=== PATIENT | male | born 1975 | race Hispanic/Latino ===

== ENCOUNTER 2018-04-08 02:30 | Inpatient (IN) | payer SELFPAY ==
[2018-04-08] VITALS (7 sets, daily range): BP systolic 132–177; BP diastolic 80–106
[~2018-04-08] VITALS: Ht 175.3 cm; Wt 86.2 kg
[2018-04-08] MEDS ORDERED: HYDROCODONE/APAP 10MG-325MG TAB ONE (02:58)
[2018-04-08] MEDS ORDERED: HYDROCODONE/APAP 10MG-325MG TAB PO ONE (03:00)
[2018-04-08] MEDS ORDERED: SODIUM CHLORIDE 0.9% 1000ML 1,000 ML IV STA ×2 (03:45→05:24)
[2018-04-08] MEDS ORDERED: ONDANSETRON HCL INJ 2 MG/ML VIAL IV STA (04:01)
[2018-04-08] MEDS ORDERED: HYDROMORPHONE 1MG/1ML INJ IV STA (04:01)
--- NOTE | 2018-04-08 04:25 | Diagnostic Imaging Report ---
FEMUR TWO VIEW MINIMUM RIGHT, HIP RIGHT 2-3 VW (+/- PELVIS), KNEE RIGHT 1-2 VIEWS Comparison: None Clinical history: Fall, leg pain Findings: Right femoral diaphysis spiral type fracture with3/4 shaft thickness anterior and medial displacement. Additional nondisplaced fracture line is seen within the distal femur fragment. Completely shattered comminuted patellar fracture. Several radiopaque bodies are seen in the region of the patella. Probable joint effusion though poorly assessed on provided views. Impression: 1. Displaced right femoral diaphyseal fracture. 2. Comminuted/scattered right patellar fracture. Signed by: Dr Patrica Salazar MD on 04/08/2018 4:22 AM
--- NOTE | 2018-04-08 04:28 | Diagnostic Imaging Report ---
CHEST SINGLE (PORTABLE), 04/08/2018 2:54 AM Technique: CHEST SINGLE (PORTABLE) Comparison: None available. Clinical history: Fall, fractures Findings: Unremarkable portable appearance of the heart, mediastinum, lungs and pleural spaces. Impression: 1. Lines/Tubes: None 2. No acute abnormality. Signed by: Dr Patrica Salazar MD on 04/08/2018 4:25 AM
[2018-04-08 04:49] LABS: BASOPHILS # (AUTO) 0.1 (0.0-0.1); BASOPHILS % 0.5 % (0.0-1.0); EOSINOPHILS # (AUTO) 0.1 (0.0-0.4); EOSINOPHILS % 0.5 % (0.0-6.0); HEMATOCRIT 38.3 % (38.2-49.6); HEMOGLOBIN 12.7 g/dL (14.0-18.0); LYMPHOCYTES # (AUTO) 1.9 (1.0-3.2); LYMPHOCYTES % 14.7 % (18.0-39.1); MEAN CORPUSCULAR HGB CONC 33.2 g/dL (31-35); MEAN CORPUSCULAR VOLUME 84.4 fL (81-99); MONOCYTES # (AUTO) 0.8 (0.2-0.8); NEUTROPHILS % 77.7 % (38.7-80.0); PLATELET COUNT 229 x10e3/uL (140-360); RED BLOOD COUNT 4.54 x10e6/uL (4.3-5.7); RED CELL DISTRIBUTION WIDTH 12.9 % (11.7-14.4)
[2018-04-08 05:03] LABS: INR 1.08; PROTHROMBIN TIME 13.2 seconds (11.9-14.5)
[2018-04-08 05:04] LABS: PARTIAL THROMBOPLASTIN TIME 25.6 seconds (23.8-35.5)
[2018-04-08 05:12] LABS: ALANINE AMINOTRANSFERASE 43 IU/L (0-55); ALBUMIN 4.4 g/dL (3.5-5.0); ALBUMIN/GLOBULIN RATIO 1.2 (0.8-2.0); ALKALINE PHOSPHATASE 114 IU/L (40-150); BLOOD UREA NITROGEN 9 mg/dL (7-26); BUN/CREATININE RATIO 10 (6-25); CALCIUM 9.5 mg/dL (8.4-10.2); CARBON DIOXIDE 17 mmol/L (22-29); CHLORIDE 98 mmol/L (98-107); CREATINE KINASE 147 IU/L (30-200); CREATININE, SERUM 0.94 mg/dL (0.72-1.25); EST GLOMERULAR FILTRATION RATE > 60 ML/MIN (60-); GLUCOSE 323 mg/dL (74-118); MAGNESIUM 2.1 MG/DL (1.3-2.1); SODIUM 134 mmol/L (136-145)
[2018-04-08] MEDS ORDERED: INSULIN REGULAR, HUMAN 100 UNIT/1 ML 3ML VIAL IV ONE (05:30)
[2018-04-08] MEDS ORDERED: TETANUS/DIPHTHERIA TOX ADULT 0.5 ML SYR IM ONE (05:30)
--- NOTE | 2018-04-08 05:52 | Diagnostic Imaging Report ---
Examination: CT head without contrast Clinical Indication: Fall; head injury. Technique: Transaxial noncontrast images from the skull base through the vertex were obtained. Sagittal and coronal reformatted images were done. Comparison: None. Findings: Scalp: No abnormalities. Bones: Intact. No fractures. No blastic or lytic lesions. Brain sulci: Appropriate for patient's age. Ventricles: Normal in size and configuration. No hydrocephalus. Extra-axial space: No abnormalities. Parenchyma: No abnormal densities. No masses, hemorrhage, or acute or chronic cortical based vascular insults. Suprasellar region: No abnormalities. Craniocervical junction: The foramen magnum is patent. No Chiari one malformation. Impression: No intracranial abnormality. Signed by: Dr. Sarah Lopez M.D. on 04/08/2018 5:49 AM
[2018-04-08] MEDS ORDERED: ONDANSETRON HCL INJ 2 MG/ML VIAL IV PRN (06:00)
[2018-04-08] MEDS ORDERED: DEXTROSE 50% SYRINGE 50 ML IV PRN (06:00)
--- NOTE | 2018-04-08 06:04 | Diagnostic Imaging Report ---
Examination: CT CERVICAL SPINE WITHOUT CONTRAST HISTORY:Neck pain. Fall. COMPARISON:None. TECHNIQUE: Multidetector helical axial images were obtained without contrast from the foramen magnum to T1. Coronal and sagittal reformatted images were done. Bone and soft tissue windows were evaluated. FINDINGS: Alignment:Normal alignment and lordosis. Vertebrae: Normal height and density. No acute fracture, infection or neoplasm. Disc space heights: Normal height. Caliber of spinal canal: Developmentally normal. Posterior fossa and craniocervical junction: Foramen magnum patent. No Chiari 1 malformation. Soft tissues: No abnormality. Degenerative changes: No disc bulge/ herniation or foraminal or canal stenosis. Additional findings: None. IMPRESSION: No abnormalities. Signed by: Dr. Sarah Lopez M.D. on 04/08/2018 6:00 AM
[2018-04-08] MEDS: HYDROMORPHONE 1MG/1ML INJ IV PRN ×4 (06:45→19:45)
[2018-04-08 06:50] LABS: ABG PCO2 33 mmHg (41-51); ABG PH 7.34 (7.31-7.41); ABG PO2 80 mmHg (80-105)
[2018-04-08 06:51] LABS: ABG HCO3 18 mmol/L (23-28)
[2018-04-08 06:54] LABS: AMPHETAMINES SCREEN,URINE NEGATIVE (NEGATIVE); BENZODIAZEPINES SCREEN,URINE NEGATIVE (NEGATIVE); BILIRUBIN,URINE NEGATIVE (NEGATIVE); CLARITY,URINE CLEAR (CLEAR); COLOR,URINE STRAW (YELLOW); KETONES,URINE 1+ (NEGATIVE); LEUKOCYTE ESTERASE ,URINE NEGATIVE (NEGATIVE); NITRITE,URINE NEGATIVE (NEGATIVE); PHENCYCLIDINE SCREEN,URINE NEGATIVE (NEGATIVE); PROTEIN,URINE DIPSTICK 1+ (NEGATIVE); URINE UROBILINOGEN 0.2 mg/dL (0.2 - 1)
[2018-04-08 06:55] LABS: BACTERIA,URINE RARE /HPF; WBC,URINE (MAN) 0-5 /HPF (0-5)
[2018-04-08] MEDS: INSULIN REGULAR, HUMAN 100 UNIT/1 ML 3ML VIAL SQ SCH ×4 (07:30→21:00)
[2018-04-08] MEDS: SODIUM CHLORIDE 0.9% 1000ML 1,000 ML IV SCH ×2 (07:50→12:40)
[2018-04-08 12:40] LABS: CREATINE KINASE 259 IU/L (30-200)
[2018-04-08] MEDS ORDERED: LISINOPRIL10 MG PO (14:32)
[2018-04-08] MEDS ORDERED: ATORVASTATIN CA10 MG PO (14:32)
[2018-04-08] MEDS ORDERED: LIDOCAINE HCL 2% LOCAL INJ 5 ML SDV VIAL INJ ONE (15:10)
[2018-04-08] MEDS ORDERED: SEVOFLURANE INHAL SOLN 250 ML PEN BTL ONE (15:10)
[2018-04-08] MEDS ORDERED: EPHEDRINE SULFATE INJ 50 MG/10 ML SYR ONE (15:10)
[2018-04-08] MEDS ORDERED: ONDANSETRON HCL INJ 2 MG/ML VIAL ONE (15:10)
[2018-04-08] MEDS ORDERED: ACETAMINOPHEN 1000 MG/100 ML IV ONE (15:10)
[2018-04-08] MEDS ORDERED: PROPOFOL IV EMULSION 10 MG/ML 20 ML VIAL ONE (15:10)
[2018-04-08] MEDS ORDERED: DEXAMETHASONE SOD PHOS INJ 4 MG/ML VIAL ONE (15:10)
[2018-04-08] MEDS: LISINOPRIL 20 MG TAB PO SCH (17:15)
[2018-04-08] MEDS ORDERED: CLONIDINE HCL 0.1 MG TAB PO PRN (17:15)
[2018-04-08] MEDS ORDERED: SODIUM CHLORIDE 0.9% 250ML 250 ML IV ONE (18:00)
[2018-04-08] MEDS ORDERED: SODIUM CHLORIDE 0.9% 1000ML 1,000 ML IV SCH (18:00)
[2018-04-08] MEDS ORDERED: CEFAZOLIN SOD 1 GM/NS 50ML 100 ML IV ONE (18:00)
[2018-04-08] MEDS: DIPHENHYDRAMINE HCL INJ 50 MG/ML VIAL IV PRN (20:45)
[2018-04-08 21:25] LABS: CREATINE KINASE 281 IU/L (30-200)
[2018-04-09] MEDS: SODIUM CHLORIDE 0.9% 1000ML 1,000 ML IV SCH ×4 (00:15→22:08)
[2018-04-09 00:34] VITALS: BP 125/82
[2018-04-09] MEDS: HYDROMORPHONE 1MG/1ML INJ IV PRN ×2 (00:59→03:53)
[2018-04-09] MEDS ORDERED: CEFAZOLIN SOD 1 GM VIAL IV NR (05:00)
[2018-04-09 05:33] VITALS: BP 127/83
[2018-04-09 06:25] LABS: BASOPHILS % 0.5 % (0.0-1.0); EOSINOPHILS # (AUTO) 0.1 (0.0-0.4); EOSINOPHILS % 1.1 % (0.0-6.0); HEMATOCRIT 36.6 % (38.2-49.6); HEMOGLOBIN 12.1 g/dL (14.0-18.0); LYMPHOCYTES # (AUTO) 1.8 (1.0-3.2); LYMPHOCYTES % 21.3 % (18.0-39.1); MEAN CORPUSCULAR HEMOGLOBIN 27.9 pg (28-32); MEAN CORPUSCULAR HGB CONC 33.1 g/dL (31-35); MEAN CORPUSCULAR VOLUME 84.5 fL (81-99); MONOCYTES # (AUTO) 0.8 (0.2-0.8); NEUTROPHILS # (AUTO) 5.5 (2.1-6.9); NEUTROPHILS % 66.6 % (38.7-80.0); PLATELET COUNT 206 x10e3/uL (140-360); RED BLOOD COUNT 4.33 x10e6/uL (4.3-5.7); RED CELL DISTRIBUTION WIDTH 12.8 % (11.7-14.4)
[2018-04-09 06:53] LABS: ALANINE AMINOTRANSFERASE 32 IU/L (0-55); ALBUMIN 3.6 g/dL (3.5-5.0); ALKALINE PHOSPHATASE 111 IU/L (40-150); ANION GAP 12.9 mmol/L (8-16); BLOOD UREA NITROGEN 15 mg/dL (7-26); BUN/CREATININE RATIO 18 (6-25); CARBON DIOXIDE 24 mmol/L (22-29); CHLORIDE 102 mmol/L (98-107); CHOL/HDL RATIO 6.4 (3.9-4.7); CHOLESTEROL 186 MD/DL (0-199); CREATININE, SERUM 0.83 mg/dL (0.72-1.25); EST GLOMERULAR FILTRATION RATE > 60 ML/MIN (60-); GLUCOSE 234 mg/dL (74-118); HDL CHOLESTEROL 29 MG/DL (40-60); LDL CHOLESTEROL 96 MG/DL (60-130); POTASSIUM 3.9 mmol/L (3.5-5.1); SODIUM 135 mmol/L (136-145); TRIGLYCERIDES 306 MG/DL (0-149)
[2018-04-09] MEDS ORDERED: BACITRACIN 50,000 UNIT VIAL ONE (07:12)
[2018-04-09] MEDS: INSULIN REGULAR, HUMAN 100 UNIT/1 ML 3ML VIAL SQ SCH ×4 (07:30→21:28)
[2018-04-09 07:52] LABS: PLATELET ESTIMATE ADEQUATE; PLATELET MORPHOLOGY COMMENT NORMAL; RBC MORPHOLOGY COMMENT NORMAL
[2018-04-09 07:53] LABS: ANISOCYTOSIS SLIGHT; HYPOCHROMASIA SLIGHT
--- NOTE | 2018-04-09 09:28 | Progress Note ---
DATE: April 09, 2018 Mr. Reddy is a 42-year-old man with history of diabetes and alcohol abuse. He came to the emergency room after falling. Apparently, he was drinking. He fell and had a fracture of the femur and right patella. He is going for surgery today. PHYSICAL EXAMINATION: Vitals: He has been afebrile, 97.2. Blood pressure 127/83. Heart rate 86. Respiratory rate 18. LABS: On the blood work, potassium 3.9, creatinine 0.83, glucose 234. White count 8.26, hemoglobin 12.1, hematocrit 36.6. Had a head CT that showed no acute findings. Cervical spine CT that showed no abnormality. Had a chest x-ray that showed no acute abnormalities. Femur x-ray showed displaced right femoral fracture and comminuted right patellar fracture. ASSESSMENT AND PLAN 1. Right femur and patella fracture for surgery today. 2. Uncontrolled diabetes. On ADA diet and sliding scale with insulin. 3. Continue intravenous antibiotics. 4. Uncontrolled hypertension. Doing better now. The plan is to continue ADA diet and sliding scale with insulin. Continue IV antibiotics as needed. Continue pain control and blood pressure medications. Job#: [id number]
[2018-04-09] MEDS ORDERED: NALOXONE HCL INJ 0.4 MG/ML AMP IV PRN (10:30)
[2018-04-09] MEDS ORDERED: ONDANSETRON HCL INJ 2 MG/ML VIAL IV PRN (10:30)
[2018-04-09] MEDS ORDERED: HYDROMORPHONE 0.2MG/ML-SOD CHL 30ML PCA SYRINGE IV PRN (10:30)
[2018-04-09] MEDS ORDERED: HYDROMORPHONE 1MG/1ML INJ ONE ×3 (10:43→10:54)
[2018-04-09] MEDS ORDERED: KETOROLAC TROMETHAMINE 30 MG/ML VIAL ONE (10:44)
[2018-04-09] MEDS ORDERED: HYDROMORPHONE 0.2MG/ML-SOD CHL 30ML PCA SYRINGE IV ONE (11:10)
--- NOTE | 2018-04-09 11:51 | Operative Report ---
DATE OF PROCEDURE: April 08, 2018 PREOPERATIVE DIAGNOSIS: Right femur fracture. POSTOPERATIVE DIAGNOSIS: Comminuted distal third right femur fracture. PROCEDURES PERFORMED 1. Attempted closed followed by an open reduction with intramedullary nail fixation of the right femur fracture. 2. Allograft bone grafting of the right femur fracture. RECOVERY ASSISTANT: None. ANESTHESIA: General endotracheal intubation anesthesia. IV FLUIDS: Per the anesthesia record. BLOOD LOSS: Approximately 300 mL. COMPLICATIONS: None. DESCRIPTION OF PROCEDURE: Mr. Reddy was taken to the operating room and placed in the supine position on the operating table. Following induction of general anesthesia as well as endotracheal intubation, the patient's right lower extremity was examined under anesthesia. He was found to have shortening of the right leg when compared to the left. Fluoroscopic evaluation of the right thigh found a right femur fracture. The patient's left lower extremity was placed in a well-padded lithotomy position. The right lower extremity was placed in well-padded longitudinal traction through a tibial traction pin that was sterilely placed on the patient prior to beginning the case. The patient's thigh was manipulated under anesthesia. Traction was placed across the patient's fracture site, and this resulted in near anatomic reduction of the patient's fracture site. The patient's thigh and flank were prepped and draped in standard surgical fashion. The case was begun by creating an incision over the greater trochanter. This incision was carried through skin only. Blunt dissection was used deepen this to the tip of the trochanter. An awl was used to penetrate the proximal femur at the level of the trochanter. The position of the awl was checked in the AP and lateral planes. A guide pin was then advanced within the medullary canal. As the guide pin was being passed across the patient's fracture site, the patient's fracture displaced, and there was newly noted comminution at the level of the fracture site. The fracture was manipulated by hand, and the guide pin was passed. Sequential reaming was undertaken. The fracture continued to displace during the reaming process and therefore an incision was made at the level of the fracture site. This incision was carried through skin only. Blunt dissection was used to deepen the incision to the level of the tensor fascia oscar. The tensor fascia oscar was then divided in line with the skin incision. The musculature of the lateral aspect of the femur was retracted superiorly, exposing the patient's fracture site. The fracture site was manipulated, and a reduction clamp was placed in the patient's fracture realigning the patient's fracture site in near anatomic position. The last reamer was then passed across the patient's fracture site without difficulty. A nail was then chosen and inserted within the medullary canal. It was visualized past the patient's fracture site and seated distally in the femur. The entire nail was then visualized from proximal to distal and found to be contained within the femur. There was excellent realignment at the patient's fracture site. The nail was locked proximally using the guide. Two screws were used to lock the nail distally with a free-hand technique. The fracture reduction clamp was then removed, and the fracture was again visualized through its entirety and found to be in essential anatomic realignment. The fracture site was then irrigated, and allograft bone graft was placed copiously about the comminuted segment. This area of the femur was then closed in a multilayer fashion. The remaining soft tissues were also closed in a multilayer fashion, and pascual were used to close the skin. Sterile dressings were applied. At the end of the case, the patient's tibial traction pin was removed. It was prepped sterilely and the pin was cut at the level of skin along the medial aspect of the tibia. It was then pulled through and out of the distal tibia. Both wounds were again irrigated and closed with pascual. Sterile dressings were applied. The patient was then awakened and taken to the postanesthesia care unit in stable condition. Job#: [id number]
--- NOTE | 2018-04-09 12:37 | Diagnostic Imaging Report ---
PROCEDURE:FEMUR ONE VIEW RIGHT TECHNIQUE:AP right femur totaling 2 radiographs INDICATION:Postsurgical evaluation. COMPARISON:None. FINDINGS: See conclusion. CONCLUSION: 1. Antegrade right femoral jimena with intact proximal and distal anchoring screws. Near-anatomic alignment. 2. Expected regional postsurgical changes including subcutaneous emphysema, edema, and surgical pascual. 3. No acute abnormality. Dictated by: Watson Lim M.D. on 04/09/2018 at 12:41 Electronically approved by: Watson Lim M.D. on 04/09/2018 at 12:41
[2018-04-09] MEDS: DIPHENHYDRAMINE HCL INJ 50 MG/ML VIAL IV PRN (13:00)
[2018-04-09] MEDS ORDERED: CEFAZOLIN SOD 1 GM/NS 50ML 50 ML IV SCH (14:00)
[2018-04-09 15:53] VITALS: BP 112/58
[2018-04-09] MEDS: CEFAZOLIN SOD 1 GM VIAL IV SCH (16:31)
[2018-04-09 18:12] VITALS: BP 112/58
[2018-04-09] MEDS ORDERED: FENTANYL CITRATE/PF 100MCG/2 ML INJ ONE (19:19)
[2018-04-09] MEDS ORDERED: MIDAZOLAM HCL 2 MG/2 ML VIAL ONE (19:19)
[2018-04-09 20:00] VITALS: BP 121/63
[2018-04-09] MEDS: ACETAMINOPHEN 1000 MG/100 ML IV PRN (21:29)
[2018-04-10] VITALS (7 sets, daily range): BP systolic 111–148; BP diastolic 56–82
[2018-04-10] MEDS: CEFAZOLIN SOD 1 GM VIAL IV SCH ×2 (00:50→09:03)
[2018-04-10] MEDS: ACETAMINOPHEN 1000 MG/100 ML IV PRN (03:40)
[2018-04-10] MEDS: SODIUM CHLORIDE 0.9% 1000ML 1,000 ML IV SCH ×3 (05:59→16:04)
[2018-04-10 06:28] LABS: HEMOGLOBIN 8.9 g/dL (14.0-18.0)
[2018-04-10] MEDS: RIVAROXABAN 10 MG TABLET PO SCH ×2 (06:49→16:57)
[2018-04-10] MEDS: LISINOPRIL 20 MG TAB PO SCH ×2 (09:03→09:14)
[2018-04-10] MEDS: INSULIN REGULAR, HUMAN 100 UNIT/1 ML 3ML VIAL SQ SCH ×4 (09:14→21:47)
--- NOTE | 2018-04-10 09:26 | Discharge Summary ---
Mr. Reddy is a 42-year-old man with a history of diabetes, hypertension, hyperlipidemia, alcohol abuse, who fell and broke his right leg. He underwent surgery yesterday. He is doing therapy. If he is able to walk tomorrow, he is going to be able to go home. PHYSICAL EXAMINATION GENERAL: He is awake and alert. He states his leg hurts a lot. VITALS: Temperature is 98, blood pressure 122/74. HEART: Regular rate. LUNGS: Clear to auscultation. ABDOMEN: Soft. BLOOD WORK: Potassium is 3.9, creatinine is 0.83, glucose is 234. White count 8.26, hemoglobin 8.9, hematocrit 27. DISCHARGE DIAGNOSES 1. Right leg fracture, status post surgery. 2. Diabetes. 3. Hypertension. 4. Hyperlipidemia. PLAN: Continue physical therapy today. If he is able to walk and it is okay with orthopedics, he is going to be able to go home tomorrow with Xarelto as an anticoagulant with some tramadol for pain. He needs followup with me in 1 week. He is to call me or come back to the emergency room if any recurrent problems. FREDDY WINCHESTER MD Job#: [id number] JODY
[2018-04-11] VITALS (8 sets, daily range): BP systolic 122–159; BP diastolic 63–90
[2018-04-11] MEDS: SODIUM CHLORIDE 0.9% 1000ML 1,000 ML IV SCH ×3 (01:59→20:42)
[2018-04-11 07:40] LABS: HEMOGLOBIN 7.7 g/dL (14.0-18.0)
[2018-04-11] MEDS: RIVAROXABAN 10 MG TABLET PO SCH (09:36)
[2018-04-11] MEDS: LISINOPRIL 20 MG TAB PO SCH (09:36)
[2018-04-11] MEDS: INSULIN REGULAR, HUMAN 100 UNIT/1 ML 3ML VIAL SQ SCH ×4 (09:48→20:41)
[2018-04-11] MEDS: HYDROCODONE/APAP 7.5MG-325MG 1 EA TAB PO PRN ×2 (10:58→17:00)
[2018-04-11] MEDS: ACETAMINOPHEN/CODEINE 300MG - 30MG TAB PO PRN (21:44)
[2018-04-12] VITALS: BP 123/63
[2018-04-12 04:00] VITALS: BP 136/70
[2018-04-12] MEDS: ACETAMINOPHEN/CODEINE 300MG - 30MG TAB PO PRN (06:40)
[2018-04-12 07:25] LABS: HEMATOCRIT 24.6 % (38.2-49.6); HEMOGLOBIN 8.2 g/dL (14.0-18.0)
[2018-04-12] MEDS: INSULIN REGULAR, HUMAN 100 UNIT/1 ML 3ML VIAL SQ SCH ×2 (07:30→11:30)
[2018-04-12] MEDS: SODIUM CHLORIDE 0.9% 1000ML 1,000 ML IV SCH (07:59)
[2018-04-12 08:00] VITALS: BP 140/86
[2018-04-12] MEDS: LISINOPRIL 20 MG TAB PO SCH (08:19)
[2018-04-12 08:44] VITALS: BP 140/86
[2018-04-12] MEDS: HYDROCODONE/APAP 7.5MG-325MG 1 EA TAB PO PRN (12:22)
[2018-04-12] MEDS: DIPHENHYDRAMINE HCL INJ 50 MG/ML VIAL IV PRN (12:22)
[2018-04-12] MEDS ORDERED: walker (12:56)
[2018-04-12 13:24] VITALS: BP 125/64
--- NOTE | 2018-04-13 00:20 | Discharge Summary ---
HISTORY OF PRESENT ILLNESS: This 42-year-old male, past medical history positive for diabetes. He fell at home. Apparently, he was drinking and fracture of the right leg. He underwent right femur and patella fracture repair. His hemoglobin was 7.7 yesterday, today went up to 8.2. Patient has been released by Dr. Recinos already. Patient going home with instructions to follow up with Dr. Recinos in a week. PHYSICAL EXAM VITALS: Blood pressure 140/86, temperature 97.7, heart rate 74 per minute, respiratory rate 20 per minute, oxygen saturation 98%. HEART: Shows regular rhythm. Normal S1, S2 sounds. LUNGS: Clear bilaterally. ABDOMEN: Soft. LABORATORY STUDIES: We have BMP, sodium 135, potassium 3.9, chloride 102, CO2 24, BUN 15, creatinine 0.83. On the CBC, white blood count 8.26, hemoglobin 8.2, hematocrit 24.6, platelet count 206,000. PT 13.2, PTT 25.6, INR 1.08. AST 17, ALT 32, total bilirubin 0.9, alkaline phosphatase 111. FINAL IMPRESSIONS 1. Status post right femur and patella fracture, status post surgical repair. 2. Acute anemia. 3. Hypertension. 4. Diabetes. PLAN OF TREATMENT 1. Patient will continue lisinopril 20 mg daily. 2. Xarelto 10 mg daily. 3. Diabetic diet. FOLLOWUP 1. Dr. Recinos in a week. 2. PCP in a week. YVONNE LILLY MD Job#: [id number] CQ
== END 2018-04-12 14:27 | disposition home or self-care (01) | DRG 481 ==
LOC: ER 02:30 → ERHOLD 06:39 → MED/SURG2 07:51 → MED/SURG 04-09 12:14
PROVIDERS: ADMIT Internal Medicine; ATTEND Internal Medicine
PROC: 0QS806Z Reposition Right Femoral Shaft with Intramedullary Internal Fixation Device, Open Approach (ICD-10-PCS; principal; 2018-04-08)
PROC: 0QUB0JZ Supplement Right Lower Femur with Synthetic Substitute, Open Approach (ICD-10-PCS; 2018-04-08)
DX: S72.351A Displaced comminuted fracture of shaft of right femur, initial encounter for closed fracture (principal); S82.041A Displaced comminuted fracture of right patella, initial encounter for closed fracture; F10.120 Alcohol abuse with intoxication, uncomplicated; E11.65 Type 2 diabetes mellitus with hyperglycemia; W01.0XXA Fall on same level from slipping, tripping and stumbling without subsequent striking against object, initial encounter; Y93.01 Activity, walking, marching and hiking; Y92.019 Unspecified place in single-family (private) house as the place of occurrence of the external cause; E78.5 Hyperlipidemia, unspecified; I10 Essential (primary) hypertension; F14.90 Cocaine use, unspecified, uncomplicated; D64.9 Anemia, unspecified; Z79.84 Long term (current) use of oral hypoglycemic drugs
CPT/HCPCS: 36415; 36600; 70450; 71045; 72125; 76001; 80053; 80061; 80307; 80320; 81001; 82550; 82553; 82805; 82948; 83735; 84484; 85014; 85018; 85025; 85610; 85730; 86850; 86900; 86920; 87086; 90714; 93005; 96372; 97139; 99284; C1713; C1762; J0690; J1100; J1170; J1200; J1885; J2001; J2250; J2405; J7030

== ENCOUNTER 2020-09-11 06:17 | Emergency (ER) | payer SELFPAY ==
[~2020-09-11] VITALS: Ht 175.3 cm; Wt 86.2 kg
[~2020-09-11 06:17] MED LIST: ATORVASTATIN CA10 MG PO; LISINOPRIL10 MG PO; walker
--- NOTE | 2020-09-11 06:29 | Emergency Department Note ---
History of Present Illnes History of Present Illness Chief Complaint: Abdominal Complaints History of Present Illness This is a 45 year old male that has past medical history of diabetes also a hernia that he has had for approximately 4 years. Patient states that over the last 2 days she's been having worsening hernia pain, nausea, no vomiting. Currently his pain is sharp, 10 out of 10. Patient does not have any obstructive symptoms, no vomiting, still having bowel movements last 1 yesterday, passing gas. . 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 Any updates have been documented here. Past Medical History Recent Fever: No Clinical Suspicion of Infectio: No New/Unexplained Change in Ment: No Past Medical History: Hypertension, Diabetes, Hyperlipedemia Other Medical History: HIGH CHOLESTEROL Other Surgery: RIGHT KNEE RIGHT ANKLE RIGHT TIB Other Last Tetanus: UNK Review of Systems Review of Systems Constitutional: Reports no symptoms EENTM: Reports no symptoms Cardiovascular: Reports no symptoms Respiratory: Reports no symptoms Gastrointestinal: Reports as per HPI Genitourinary: Reports no symptoms Musculoskeletal: Reports no symptoms Integumentary: Reports no symptoms Neurological: Reports no symptoms Psychological: Reports no symptoms Endocrine: Reports no symptoms Hematological/Lymphatic: Reports no symptoms Physical Exam Related Data Allergies: Coded Allergies: No Known Allergies (Unverified , 04/08/18) Triage Vital Signs Vital Signs Date Time Temp Pulse Resp B/P (MAP) Pulse Ox O2 Delivery O2 Flow Rate FiO2 09/11/20 06:20 98.4 108 23 192/109 100 Room Air Vital signs reviewed: Yes Physical Exam CONSTITUTIONAL Constitutional: Present well-developed, Present well-nourished HENT HENT: Present normocephalic, Present atraumatic, Present oropharynx clear/moist, Present nose normal HENT L/R: Present left ext ear normal, Present right ext ear normal EYES Eyes: Reports PERRL, Reports conjunctivae normal NECK Neck: Present ROM normal PULMONARY Pulmonary: Present effort normal, Present breath sounds normal CARDIOVASCULAR Cardiovascular: Present regular rhythm, Present heart sounds normal, Present capillary refill normal, Present normal rate GASTROINTESTINAL Abdominal: Present soft, Present bowel sounds normal, Present other (TTP around umbilical hernia, soft, + intestine, 2x3cm chronic ulcer with milld 2cm surrounding erythema, no fluctuance) GENITOURINARY Genitourinary: Present exam deferred SKIN Skin: Present warm, Present dry MUSCULOSKELETAL Musculoskeletal: Present ROM normal NEUROLOGICAL Neurological: Present alert, Present oriented x 3, Present no gross motor or sensory deficits PSYCHOLOGICAL Psychological: Present mood/affect normal, Present judgement normal Assessment & Plan Medical Decision Making MDM Patient's a 45-year-old male with 4 year history of an umbilical hernia no worsening pain over the last [address] yoon, we'll rule out incarceration abdominal wall cellulitis and abscess with a CT of his belly. We'll also check blood work and treat him symptomatically in the meantime. Reassessment Reassessment Patient at 1050 reassess, abdomen soft benign, no concern for peritonitis, given ulceration, we'll treat with antibiotics. Lactate likely was high secondary to hyperglycemia. Lactic acid came back normal after hydration. Your warnings given all results explained Assessment & Plan Final Impression: (1) Umbilical hernia (2) Hyperglycemia Depart Disposition: HOME, SELF-CARE Last Vital Signs Date Time Temp Pulse Resp B/P (MAP) Pulse Ox O2 Delivery O2 Flow Rate FiO2 09/11/20 06:20 98.4 108 23 192/109 100 Room Air Home Meds Active Scripts Cephalexin (CEPHALEXIN) 500 Mg Capsule, 500 MG PO TID, #30 CAP Prov:DAYRON MELGOZA MD 09/11/20 Tramadol Hcl (ULTRAM) 50 Mg Tablet, 50 MG PO Q6H PRN for severe pain, #15 TAB Prov:DAYRON MELGOZA MD 09/11/20 Reported Medications [walker] No Conflict Check 04/12/18 Atorvastatin Calcium (ATORVASTATIN CALCIUM) 10 Mg Tablet, 10 MG PO 2099, #30 TAB 04/08/18 Lisinopril (LISINOPRIL) 10 Mg Tablet, 10 MG PO DAILY, #30 TAB 04/08/18 DAYRON MELGOZA MD Sep 11, 2020 06:29
[2020-09-11] MEDS: LACTATED RINGER'S 1,000 ML INJ ONE (06:40)
[2020-09-11] MEDS: ONDANSETRON HCL INJ 2MG/ML 2ML 2 MG/ML VIAL IV STA (06:40)
[2020-09-11 06:43] LABS: BASOPHILS % 0.7 % (0.0-1.0); EOSINOPHILS # (AUTO) 0.1 (0.0-0.4); HEMATOCRIT 41.1 % (38.2-49.6); HEMOGLOBIN 13.5 g/dL (14.0-18.0); LYMPHOCYTES # (AUTO) 2.6 (1.0-3.2); LYMPHOCYTES % 42.6 % (18.0-39.1); MEAN CORPUSCULAR HGB CONC 32.8 g/dL (31-35); MEAN CORPUSCULAR VOLUME 85.3 fL (81-99); MONOCYTES # (AUTO) 0.6 (0.2-0.8); MONOCYTES % 9.1 % (4.4-11.3); NEUTROPHILS # (AUTO) 2.8 (2.1-6.9); NEUTROPHILS % 45.3 % (38.7-80.0); PLATELET COUNT 222 x10e3/uL (140-360); RED BLOOD COUNT 4.82 x10e6/uL (4.3-5.7); RED CELL DISTRIBUTION WIDTH 13.1 % (11.7-14.4)
[2020-09-11] MEDS ORDERED: ONDANSETRON HCL INJ 2MG/ML 2ML 2 MG/ML VIAL ONE (06:46)
[2020-09-11] MEDS: HYDROMORPHONE 1MG/1ML INJ IV STA (06:48)
[2020-09-11 07:01] LABS: ALANINE AMINOTRANSFERASE 29 IU/L (0-55); ALBUMIN 4.1 g/dL (3.5-5.0); ALBUMIN/GLOBULIN RATIO 1.2 (0.8-2.0); ALKALINE PHOSPHATASE 96 IU/L (40-150); ANION GAP 14.7 mmol/L (8-16); BLOOD UREA NITROGEN 19 mg/dL (7-26); BUN/CREATININE RATIO 20 (6-25); CALCIUM 8.7 mg/dL (8.4-10.2); CARBON DIOXIDE 21 mmol/L (22-29); CHLORIDE 102 mmol/L (98-107); CREATININE, SERUM 0.94 mg/dL (0.72-1.25); EST GLOMERULAR FILTRATION RATE > 60 ML/MIN (60-); GLUCOSE 259 mg/dL (74-118); LIPASE 40 U/L (8-78); POTASSIUM 3.7 mmol/L (3.5-5.1); SODIUM 134 mmol/L (136-145)
--- NOTE | 2020-09-11 07:01 | NUR ---
Report to LORI Fournier
--- OUTSIDE RECORDS SUMMARY | 2020-09-11 07:26 | XMS REPORT | Clinical Summary ---
Author Author [facility] ict Organization [facility] ict Address Unknown Phone Unavailable Care Team Providers Care Drying And Winding Supervisor Name Role Phone Kathryn Al MD PCP Tony Wesley MD PCP Allergies No Known Allergies Medications End Date Status Medication Sig Dispensed Refills Start Date Active blood glucose meter Use as 1 Kit 0 (PRECISION XTRA directed.. 6 GLUCOMETER)Indications: Uncontrolled type 2 diabetes mellitus without complication, without long-term current use of insulin Active blood glucose (PRECISION Use to test 200 Each 3 0 XTRA TEST STRIPS) test blood sugar 9 stripsIndications: three times Uncontrolled type 2 daily diabetes mellitus without complication, without long-term current use of insulin Active lancets 28 Use to test 300 Each 3 gaugeIndications: blood sugar 9 Uncontrolled type 2 three times diabetes mellitus without daily complication, without long-term current use of insulin Active blood glucose test Use to test 300 Each 6 01 stripsIndications: blood sugar 9 Inadequately controlled three times diabetes mellitus daily. Active pen needle, diabetic 31 Inject under 3 Box 3 0 gauge x 3/16" the skin 5 9 needlesIndications: times daily. Inadequately controlled diabetes mellitus Active blood glucose Use as 1 Kit 0 meterIndications: directed.. 9 Uncontrolled type 2 diabetes mellitus without complication, without long-term current use of insulin Active ketoconazole (NIZORAL) 2 Apply to 60 g 0 0 % topical affected area 0 creamIndications: Tinea 2 times corporis daily. Active metFORMIN (GLUCOPHAGE) Take 1 tablet 180 tablet 1 0 1,000 mg by mouth 2 0 tabletIndications: times daily Inadequately controlled (with meals). diabetes mellitus Additional Information Patient not taking. Reported on 04/12/2020 4:49 PM Active albuterol 90 Inhale 2 1 Inhaler 0 mcg/actuation Puffs by 0 inhalerIndications: mouth 4 times Fever, unspecified fever daily as cause, Multifocal needed for pneumonia Wheezing. Active atorvastatin (LIPITOR) 40 Take 1 tablet 90 tablet 1 mg tabletIndications: by mouth at 0 Hyperlipidemia, bedtime unspecified nightly. hyperlipidemia type Active insulin aspart U-100 Inject 15 30 mL 1 05/25 (NOVOLOG FLEXPEN U-100 Units under 0 INSULIN) 100 unit/mL (3 the skin 3 mL) penIndications: times daily. Inadequately controlled diabetes mellitus Active lisinopriL (PRINIVIL, Take 1 tablet 90 tablet 3 ZESTRIL) 20 mg by mouth 0 tabletIndications: daily. Inadequately controlled diabetes mellitus 11/22/2019 Discontinued (Alternate ther apy) clotrimazole (LOTRIMIN Apply to 28.35 g 2 AF, CLOTRIMAZOLE,) 1 % affected area 8 topical creamIndications: 2 times Tinea pedis of both feet daily. 11/22/2019 Discontinued (Reorder) insulin aspart U-100 Inject 10 5 Pen 0 07/10 (NOVOLOG FLEXPEN U-100 Units under 9 INSULIN) 100 unit/mL (3 the skin 3 mL) penIndications: times daily Inadequately controlled (before diabetes mellitus meals). 11/22/2019 Discontinued (Reorder) atorvastatin (LIPITOR) 40 Take 1 tablet 90 tablet 0 mg tabletIndications: by mouth at 9 Hyperlipidemia, bedtime unspecified nightly. hyperlipidemia type 11/22/2019 Discontinued (Reorder) lisinopril (PRINIVIL, Take 1 tablet 90 tablet 3 ZESTRIL) 20 mg by mouth 9 tabletIndications: daily. Inadequately controlled diabetes mellitus 11/22/2019 Discontinued (Reorder) insulin detemir U-100 Inject 15 3 Month 0 06/21 (LEVEMIR FLEXTOUCH U-100 Units under Supply 9 INSULN) 100 unit/mL (3 the skin mL) PenIndications: daily. Uncontrolled type 2 diabetes mellitus without complication, without long-term current use of insulin 01/26/2020 Discontinued (Reorder) insulin detemir U-100 Inject 25 27 mL 0 (LEVEMIR FLEXTOUCH U-100 Units under 0 INSULN) 100 unit/mL (3 the skin mL) PenIndications: daily for 90 Inadequately controlled days. diabetes mellitus 01/26/2020 Discontinued (Reorder) insulin aspart U-100 Inject 10 10 Pen 1 11/22 (NOVOLOG FLEXPEN U-100 Units under 0 INSULIN) 100 unit/mL (3 the skin 3 mL) penIndications: times daily. Inadequately controlled diabetes mellitus 05/25/2020 Discontinued (Reorder) atorvastatin (LIPITOR) 40 Take 1 tablet 90 tablet 0 mg tabletIndications: by mouth at 0 Hyperlipidemia, bedtime unspecified nightly. hyperlipidemia type 05/25/2020 Discontinued (Reorder) lisinopril (PRINIVIL, Take 1 tablet 90 tablet 3 ZESTRIL) 20 mg by mouth 0 tabletIndications: daily. Inadequately controlled diabetes mellitus 01/26/2020 Discontinued (Reorder) metFORMIN (GLUCOPHAGE) Take 1 tablet 180 tablet 1 0 1,000 mg by mouth 2 0 tabletIndications: times daily Inadequately controlled (with meals). diabetes mellitus 01/26/2020 tropicamide (MYDRIACYL) Instill 1 15 mL 0 0.5 % ophthalmic Drop in each 0 solutionIndications: eye once as Inadequately controlled needed for up diabetes mellitus to 1 dose (for poor retina scan image). 07/26/2020 insulin detemir U-100 Inject 45 55 mL 1 (LEVEMIR FLEXTOUCH U-100 Units under 0 INSULN) 100 unit/mL (3 the skin 2 mL) PenIndications: times daily Inadequately controlled for 90 days. diabetes mellitus 05/25/2020 Discontinued (Reorder) insulin aspart U-100 Inject 15 30 mL 1 01/25 (NOVOLOG FLEXPEN U-100 Units under 0 INSULIN) 100 unit/mL (3 the skin 3 mL) penIndications: times daily. Inadequately controlled diabetes mellitus 04/12/2020 Discontinued (Reorder) azithromycin (ZITHROMAX) Take 2 6 Each 0 0 250 mg tabletIndications: tablets by 0 Multifocal pneumonia mouth on the first day, then take one tablet every day for the next 4 days. 04/12/2020 Discontinued (Reorder) amoxicillin-clavulanate Take 1 tablet 10 tablet 0 (AUGMENTIN) 875-125 mg by mouth 2 0 per tabletIndications: times daily Multifocal pneumonia for 5 days. 04/17/2020 amoxicillin-clavulanate Take 1 tablet 10 tablet 0 (AUGMENTIN) 875-125 mg by mouth 2 0 per tabletIndications: times daily Multifocal pneumonia for 5 days. 04/17/2020 azithromycin (ZITHROMAX) Take 2 6 Each 0 0 250 mg tabletIndications: tablets by 0 Multifocal pneumonia mouth on the first day, then take one tablet every day for the next 4 days. Active Problems Problem Noted Date Chronic anemia 01/26/2020 Onychomycosis 11/22/2019 Tinea corporis 11/22/2019 Hyperlipidemia 12/07/2018 Inadequately controlled diabetes mellitus 12/07/2018 Alcohol use-quit aug 2019 12/07/2018 History of substance abuse- cocaine /MJ till 2016 Renal insufficiency 05/20/2018 Essential hypertension, benign 05/14/2016 Uncontrolled type 2 diabetes mellitus without complic ation, without 05/14/2016 long-term current use of insulin Overweight (BMI 25.0-29.9) 05/14/2016 Failure of outpatient treatment Cough Fever Resolved Problems Problem Noted Date Resolved Date Cellulitis 07/07/2019 11/22/2019 Foot swelling 12/07/2018 11/22/2019 Balanitis 05/14/2016 11/22/2019 Cellulitis of face 11/22/2019 Dental abscess 11/22/2019 Encounters Care Team Description Date Type Specialty Chloe Demarco RPH Hyperlipidemia, unspecified hyperlipidem ia type; Inadequately controlled diabetes mellitus 05/25/2020 Telephonic Clinical Pharmacy Encounter Chloe Demarco RPH Inadequately controlled diabetes mellitu s (Primary Dx); Other hyperlipidemia 04/20/2020 Telephonic Clinical Pharmacy Encounter Lit Ly MD Cough (Primary Dx); Fever, unspecified fever cause; Multifocal pneumonia 04/12/2020 Emergency Emergency Medicine Chloe Demarco RPH No Show 03/28/2020 Telephonic Clinical Pharmacy Encounter Dav Chloe Paz [facility] No Show 02/29/2020 Telephonic Clinical Pharmacy Encounter Tony Wesley MD Inadequately controlled diabetes mellitu s (Primary Dx); Hyperlipidemia, unspecified hyperlipidemia type; Chronic anemia 01/26/2020 Telephonic Family Practice Encounter Tony Wesley MD 01/26/2020 Orders Only Family Practice Ktahryn Al MD [place], [place], MD Inadequately controlled diabetes mellitu s (Primary Dx); Hyperlipidemia, unspecified hyperlipidemia type; Needs flu shot; Dietary counseling for Above / Below Normal BMI; Exercise counseling for Above Normal BMI Only!; Tinea corporis; Onychomycosis 11/22/2019 Office Visit Family Practice after 09/11/2019 Immunizations Name Administration Dates Next Due Influenza, Injectable, 11/22/2019 Quadrivalent Pneumococcal 05/24/2017 <Unspecified> Tdap (Tetanus Toxoid, 05/20/2018 (Deferred: Noe nt already had this Reduced Diphtheria Toxoid immunization - reports thi nks he got from [facility] Pertussis, Kelechi) Absorbed) Family History Medical History Relation Name Comments Diabetes Father Diabetes Mother Diabetes Paternal Grandmother Diabetes Sister Relation Name Status Comments Brother Alive Brother Alive Brother Alive Daughter Alive Daughter Alive Father Alive Maternal Grandfather Maternal Grandmother Mother Alive Paternal Grandfather Paternal Grandmother Sister Alive Social History Date Tobacco Use Types Packs/Day Years Used Former Smoker Smokeless Tobacco: Never Used Tobacco Cessation: Counseling Given: No Drinks/Week oz/Week Comments Alcohol Use 6 Cans of beer 6.0 past heavy etoh use ; curren tly 6 pk on wk ends " from depression - now able to see my daughter " Not Currently Food Insecurity Answer Date Recorded Within the past 12 months, you worried that your Never redd e 12/07/2018 food would run out before you got money to buy more. Within the past 12 months, the food you bought Never true 12/07/2018 just didn't last and you didn't have mo eric to get more. Sex Assigned at Date Recorded Not on file Industry Job Start Date Occupation Not on file Not on file Not on file Travel End Travel History Travel Start No recent travel history available. Date Recorded COVID-19 Exposure Response 09/06/2020 2:24 PM SERVICE ELECTRICIAN In the last month, have you been in contact with No / Unsure someone who was confirmed or suspected to have Coronavirus / COVID-19? Last Filed Vital Signs Reading Time Taken Comments Vital Sign 125/75 04/12/2020 8:20 PM CDT Blood Pressure 99 04/12/2020 8:20 PM CDT Pulse 38.4 C (101.2 F) 04/12/2020 8:20 PM CDT Temperature 18 04/12/2020 8:20 PM CDT Respiratory Rate 97% 04/12/2020 8:20 PM CDT Oxygen Saturation - - Inhaled Oxygen Concentration 86.4 kg (190 lb 6.4 oz) 11/22/2019 2:22 PM SERVICE ELECTRICIAN Weight 172.7 cm (5' 8") 11/22/2019 2:22 PM SERVICE ELECTRICIAN Height 28.95 11/22/2019 2:22 PM SERVICE ELECTRICIAN Body Mass Index Plan of Treatment Health Maintenance Due Date Last Done Comments DM Retinal Exam (Yearly) 03/24/2020 03/24/2019, 02/03/2019, 05/20/2018, Additional history exists DM HGBA1C (Yearly) 07/08/2020 07/08/2019, 12/07/2018, 05/20/2018, Additional history exists DM Foot Exam (Yearly) 11/22/2020 11/22/2019, 05/20/2018, 06/11/2017, Additional history exists Goals Goal Patient Associated Recent Progress Patient-Stat Aut hor Goal Type Problems ed? Reduce portion size Diet No Do ra Tim Freedman RN <enter goal here> General Yes Shirin Oneill RN Note: Pt denies having any goals at this time. Eat Healthy Lifestyle No Minerva Helms Note: Eat healthier and take medications Exercise Regularly Self No Tk Freedman RN Home Glucose Monitoring Self No juvenal Allison MD HBA1C < 8 Treatment No Tony Wesley MD Procedures Comments Procedure Name Priority Date/Time Associated Diag nosis LACTIC ACID STAT 04/12/2020 6:12 PM CDT GLUCOSE POC Routine 04/12/2020 6:03 PM CDT XRAY CHEST 2 VIEWS STAT 04/12/2020 Cough 4:30 PM CDT VBG POC Routine 04/12/2020 3:54 PM CDT LACTIC ACID STAT 04/12/2020 3:00 PM CDT CBC STAT 04/12/2020 3:00 PM CDT CBC/DIFF STAT 04/12/2020 3:00 PM CDT CREATININE POC Routine 04/12/2020 12:58 PM CDT BMP POC Routine 04/12/2020 12:58 PM CDT DIABETIC FOOT EXAM Routine 11/22/2019 Inadequatel y controlled 3:36 PM SERVICE ELECTRICIAN diabetes mellitus after 09/11/2019 Results * Lactic Acid (04/12/2020 6:12 PM CDT) Only the most recent of 2 results within the time period is included. Lactic Acid 1.4 0.5 - 2.2 mmol/L [facility] Specimen Blood Performing Organization Address [facility] [place] one Number [facility] [address] [place] [address] * POCT GLUCOSE POC docked device (04/12/2020 6:03 PM CDT) Glucose POC 214 (H) 74 - 106 mg/dL [facility] Specimen Blood Performing Organization Address [facility] [place] one Number [facility] [address] [place] [address] * XRAY CHEST 2 VIEWS (04/12/2020 4:30 PM CDT) Specimen Impressions Performed At IMPRESSION: SMS Patchy airspace opacities in the right midlung, right lower lobe and left lower lobe are concerning for mult ifocal pneumonia. Signed By: Shannan Gonzales MD, 0 4:35 PM Narrative Performed At EXAM: XRAY CHEST 2 VIEWS SMS INDICATION: cough COMPARISON: None FINDINGS: Portable technique limits velma luation. TUBES and LINES: None. LUNGS: Patchy airspace opacities in the right midlung, right lower lobe and left lower lobe are concerning for pneumonia. Peribronchial cuffing suggests endobronchial spread of diseas e or reactive airway disease. PLEURA: No pneumothorax. No pleural eff usion. HEART AND MEDIASTINUM: Cardiomediastina l silhouette is unremarkable. Unremarkable visualized aorta. BONES AND SOFT TISSUES: No acute osseou s lesion. Soft tissues are unremarkable. Procedure Note Interface, Rad/Mammog In - 04/12/2020 4:47 PM CDT EXAM: XRAY CHEST 2 VIEWS INDICATION: cough COMPARISON: None FINDINGS: Portable technique limits evaluation. TUBES and LINES: None. LUNGS: Patchy airspace opacities in the right midlung, right lower lobe and left lower lobe are concerning for pneumonia. Peribronchial cuffing suggests endobronchial spread of disease or reactive airway disease. PLEURA: No pneumothorax. No pleural effusion. HEART AND MEDIASTINUM: Cardiomediastinal silhouette is unremarkable. Unremarkable visualized aorta. BONES AND SOFT TISSUES: No acute osseous lesion. Soft tissues are unremarkable. IMPRESSION IMPRESSION: Patchy airspace opacities in the right midlung, right lower lobe and left lower lobe are concerning for multifocal pneumonia. Signed By: Shannan Gonzales MD, 04/12/2020 4:35 PM Performing Organization Address [facility] [place] [place] Ph one Number SMS * POCT VBG POC docked device (04/12/2020 3:54 PM CDT) pH, Faraz POC 7.38 7.33 - 7.43 [facility] pCO2,Faraz POC 43.4 38 - 50 mmHg [facility] PO2, Venous POC 27 (L) 50 - 75 mm Hg [facility] Ionized Calcium 1.11 (L) 1.15 - 1.29 mmol/L [facility] HCO3, Faraz POC 25 22 - 26 mmol/L [facility] TCO2 POC 27 21 - 32 mmol/L [facility] Base Excess Faraz 0 mmol/L [facility] Sample Type IVENComment: Physician [facility] % Sat, Fraaz POC 48 % [facility] Specimen Blood, venous Performing Organization Address [facility] [place] [place] Ph one Number [facility] [address] [place], [place] [id number] LABORATORY * CBC/Diff (04/12/2020 3:00 PM CDT) WBC 6.7 4.5 - 12.0 K/uL [facility] RBC 4.89 4.60 - 6.20 M/uL [facility] Hemoglobin 13.6 (L) 14.0 - 18.0 g/dL [facility] Hematocrit 42.4 40.0 - 54.0 % [facility] MCV 86.7 82.0 - 92.0 fL [facility] MCH 27.8 27.0 - 31.0 pg [facility] MCHC 32.1 32.0 - 36.0 g/dL [facility] RDW 40.9 35.1 - 43.9 fL [facility] Platelet 187 150 - 400 K/uL [facility] Mean Platelet 11.9 9.4 - 12.4 fL [facility] Percent NRBC 0.0 % [facility] Neutrophil 67.2 34.0 - 67.9 % [facility] Lymphs 23.2 21.8 - 50.0 % [facility] Monocytes 8.9 5.3 - 12.0 % [facility] Eos 0.0 (L) 0.8 - 5.0 % [facility] Basos 0.3 0.2 - 1.2 % [facility] Immature 0.4 0.0 - 0.5 % [facility] Neutrophils 4.52 1.78 - 5.36 K/uL [facility] (Absolute) [facility] Lymphs 1.56 1.32 - 3.57 K/uL [facility] (Absolute) [facility] Monocytes(Absol 0.60 0.30 - 0.82 K/uL [facility]i) [facility] Eos (Absolute) 0.00 (L) 0.04 - 0.54 K/uL [facility] Baso (Absolute) 0.02 0.01 - 0.08 K/uL [facility] Immature Grans 0.03 0.00 - 0.03 K/uL [facility] (Abs) [facility] Absolute NRBC 0.00 K/uL [facility] Specimen Blood Performing Organization Address City/State/Zipcode Ph one Number [facility] [address] [place] [address] * POCT CREATININE POC docked device (04/12/2020 12:58 PM CDT) Creatinine POC 0.8Comment: Physician Notified 0.6 - 1.3 mg/dL [facility] GFR, Estimated >90 >=90 mL/min/1.73 m2 [facility] Specimen Blood, venous Performing Organization Address [facility] one Number [facility] [address] [place] [address] LABORATORY * POCT BMP POC docked device (04/12/2020 12:58 PM CDT) Sodium POC 131 (L) 136 - 145 mmol/L [facility] Potassium POC 4.4 3.5 - 5.1 mmol/L [facility] Chloride POC 99 98 - 107 mmol/L [facility] TCO2 POC 25Comment: Physician Notified 21 - 32 mmol/L [facility] Urea Nitrogen 20 (H) 7 - 18 mg/dL [facility] Glucose POC 327 (H) 74 - 106 mg/dL [facility] Hemoglobin POC 16.7 (H) 12 - 16 g/dL [facility] Hematocrit POC 49.0 (H) 37.0 - 47.0 % [facility] Specimen Blood, venous Performing Organization Address [facility] one Number [facility] [address] [place] [address] [phone] LABORATORY * DIABETIC FOOT EXAM (11/22/2019 3:36 PM SERVICE ELECTRICIAN) Narrative Performed At Tony Wesley MD 0 4:45 PM Diabetic Foot Exam was performed at 11/22 3:52 PM. Right foot sensation is normal, right foot pulses are normal, right foot appearance is abnormal. Left foot sensation is n ormal, left foot pulses are normal, left foot appearance is abnormal. Multi ple nails thickening ; scaly soles after 09/11/2019 Insurance Type Payer Benefit Subscriber ID Effective Phone Address Plan / Dates Group [facility] [employer] [employer] xxxxxxx 2020- [phone] [id number] [place] [address] [employer] [place] 2020- [address] [id number] [place], [place] [id number] Guarantor Name Account Relation to Date of Phone Billin g Address Type Patient HARRY LAWLER Personal/F Head of 1975 [id number] [facility] Household (Home) [place], [place] [address] (Self) Advance Directives Date Inactivated Comments Code Status Date Activated 07/10/2019 12:14 PM Full Code 07/07/2019 10:20 PM
--- OUTSIDE RECORDS SUMMARY | 2020-09-11 07:27 | XMS REPORT | Continuity of Care Document ---
Author Author [facility] t Organization [facility] Address [address] [place] [id number] Phone Unavailable Care Team Providers Care Press Helper Name Role Phone NO, PCP PCP Unavailable Dav [facility], Brandi Corona Attphys Malachi MUKHERJEE, Anastasia Murrieta Attphys Maryjane MUKHERJEE, Tony Attphys [phone] Aneta Al MD, P Kathryn Attphys BOCCARDO, FREDDY Attphys Unavailable JEREMY, O MUNIRU Attphys Unavailable BOCCARDO, FREDDY Admphys Unavailable ABHISHEK ANDREWS Admphys Unavailable Payers Payer Name Policy Type Policy Number Effective Date Expiration Date S belkis [facility] PLANFINANCIAL ASSISTANCE PROGRAMxxx [id number] [place] [address] xxxxxxx 2020 00:00:00 2020-10 23:59:59 [facility] FAMILY PLANNING INDIGENTTEX[place] FAMI LY PLANNING [id number], [place] [address] xxxxxxx 2020 00:00:00 2021 23:59:59 H arris Health Problems Condition Name Condition Details Condition Category Status Onset Date Resolution Date Last Treatment Date Treating Clinician Comments Source Chronic anemia Chronic anemia Disease Active 2020-01-26 00:00:00 [facility] Onychomycosis Onychomycosis Disease Active 2019-11-22 00:00:00 [facility] Tinea corporis Tinea corporis Disease Active 2019-11-22 00:00:00 [facility] Hyperlipidemia Hyperlipidemia Disease Active 2018-12-07 00:00:00 [facility] Inadequately controlled diabetes mellitus Inadequately controlled diabetes mellitus Disease Active 2018-12-07 00:00:00 [facility] Alcohol use-quit aug 2019 Alcohol use-quit aug 2019 Disease A ctive 2018-12-07 00:00:00 [facility] History of substance abuse- cocaine /MJ till 2016 Hist ory of substance abuse- cocaine /MJ till 2016 Disease Active 2018-12-07 00:00:00 [facility] Renal insufficiency Renal insufficiency Disease Active 2018-05-20 00:00 :00 [facility] Essential hypertension, benign Essential hypertension, benign Disea se Active 2016-05-14 00:00:00 [facility] ealth Uncontrolled type 2 diabetes mellitus wi thout complication, without long-term current use of insulin Uncontrolled type 2 diabetes mellitus wi thout complication, without long-term current use of insulin Disease Activ e 2016-05-14 00:00:00 [facility] Overweight (BMI 25.0-29.9) Overweight (BMI 25.0-29.9) Disease Active 2016-05-14 00:00:00 [facility] Closed fracture of shaft of femur Fx femur shaft-closed Problem Active [facility] Hyperglycemia Hyperglycemia Problem Active [facility] Fracture of right patella Right patella fracture Problem Active [facility] Failure of outpatient treatment Failure of outpatient treatment Dis ease Active [facility] Cough Cough Disease Active [facility] Fever Fever Disease Active [facility] History of Past Illness Condition Name Condition Details Condition Category Status Onset Date Resolution Date Last Treatment Date Treating Clinician Comments Source Cellulitis Cellulitis Disease Resolved 2019-07-07 00:00:00 00:00:00 2019-11-22 15:42:15 [facility] Foot swelling Foot swelling Disease Resolved 2018-12-07 00:00:00 2019-11-22 00:00:00 2019-11-22 15:42:32 [facility] Balanitis Balanitis Disease Resolved 2016-05-14 00:00:00 2019-11-22 00:00:00 2019-11-22 15:42:29 [facility] Cellulitis of face Cellulitis of face Disease Resolved 09-12-02 00:00:00 2019-11-22 15:42:17 [facility] Dental abscess Dental abscess Disease Resolved 2019-11-22 00:00:00 2019-11-22 15:42:13 [facility] Allergies, Adverse Reactions, Alerts This patient has no known allergies or adverse reactions. Family History Family Member Diagnosis Comments Start Date Stop Date Source Natural father Diabetes [facility] Natural mother Diabetes [facility] Paternal grandmother Diabetes [facility] sister [facility] Social History Social Habit Start Date Stop Date Quantity Comments Source Sex Assigned At [facility] Exposure to SARS-CoV-2 (event) Not sure [facility] Alcohol intake 2020-04-12 00:00:00 2020-04-12 00:00:00 Ex-drinker (fi nding) [facility] History SDOH Food Worry 2018-12-07 00:00:00 2018-12-07 00:00:00 1 [facility] SDOH Food Scarcity 2018-12-07 00:00:00 2018-12-07 00:00:00 1 [facility] Alcohol Comment 2018-12-07 00:00:00 2018-12-07 00:00:00 past hea vy etoh use ; currently 6 pk on wk ends " from depression - now able to see my daughter " [facility] Smoking Status Start Date Stop Date Source Former smoker 2020-04-12 00:00:00 2020-04-12 00:00:00 [facility] ealt Medications Ordered Medication Name Filled Medication Name Start Date Stop Da te Current Medication? Ordering Clinician Indication Dosage Frequency Signature (SIG) Comments Components Source atorvastatin (LIPITOR) 40 mg tablet 2020-05-25 00:00:00 Yes Hyperlipidemia, unspecified hyperlipidemia type 40mg Take 1 tablet by mouth at bedtime nightly. [facility] insulin aspart U-100 (NOVOLOG FLEXPEN U-100 INSULIN) 100 uni t/mL (3 mL) pen 2020-05-25 00:00:00 Yes Inadequately controlled diabet es mellitus 15U Inject 15 Units under the skin 3 times daily. [facility] lisinopriL (PRINIVIL, ZESTRIL) 20 mg tablet 2020-05-25 00:00 :00 Yes Inadequately controlled diabetes mellitus 20mg QD Take 1 tablet by mouth daily. [facility] albuterol 90 mcg/actuation inhaler 2020-04-12 00:00:00 Yes Multifocal pneumonia 2{puff} Inhale 2 Puffs by mo uth 4 times daily as needed for Wheezing. [facility] amoxicillin-clavulanate (AUGMENTIN) 875-125 mg per tablet 2020-04-12 00:00:00 2020-04-17 23:59:00 No Multifocal pneumonia 1{tbl} Q.5D Take 1 tablet by mouth 2 times daily for 5 days. [facility] azithromycin (ZITHROMAX) 250 mg tablet 2020-03-21 4 00:00:00 2020-04-17 23:59:00 No Multifocal pneumonia Take 2 tablets by mouth on the first day, then take one tablet every day for the next 4 days. [facility] azithromycin (ZITHROMAX) 250 mg tablet 2020-03-21 4 00:00:2020-04-12 00:00:00 No Multifocal pneumonia Take 2 tablets by mouth on the first day, then take one tablet every day for the next 4 days. [facility] amoxicillin-clavulanate (AUGMENTIN) 875-125 mg per tablet 2020-04-12 00:00:2020-04-12 00:00:00 No Multifocal pneumonia 1{tbl} Q.5D Take 1 tablet by mouth 2 times daily for 5 days. [facility] metFORMIN (GLUCOPHAGE) 1,000 mg tablet 2020-01-26 00:00:00 Yes Inadequately controlled diabetes mellitus 1000mg Take 1 tablet by mouth 2 times daily (with meals). [facility] insulin detemir U-100 (LEVEMIR FLEXTOUCH U-100 INSULN) 100 u nit/mL (3 mL) Pen 2020-01-26 00:00:00 2020-07-26 23:59:00 No Inadequa tely controlled diabetes mellitus 45U Q.5D Inject 45 Units under the skin 2 times daily fo r 90 days. [facility] insulin aspart U-100 (NOVOLOG FLEXPEN U-100 INSULIN) 100 uni t/mL (3 mL) pen 2020-01-26 00:00:00 2020-05-25 00:00:00 No Inadequa tely controlled diabetes mellitus 15U Inject 15 Units under the skin 3 times daily. [facility] tropicamide (MYDRIACYL) 0.5 % ophthalmic solution 2020-01-26 00:00:00 2020-01-26 23:59:00 No Inadequately controlled diabetes melli tus 1[drp] Instill 1 Drop in each eye once as needed for up to 1 dose (for poor retina scan image). [facility] ketoconazole (NIZORAL) 2 % topical cream 2019-11-22 00:00:00 Yes Tinea corporis Q.5D Apply to affected area 2 times daily. [facility] atorvastatin (LIPITOR) 40 mg tablet 2019-11-22 00:00:0 0 2020-05-25 00:00:00 No Hyperlipidemia, unspecified hyperlipidemia type 40mg Take 1 tablet by mouth at bedtime nightly. [facility] lisinopril (PRINIVIL, ZESTRIL) 20 mg tablet 2019 00:00:00 2020-05-25 00:00:00 No Inadequately controlled diabetes mellitus 20mg QD Take 1 tablet by mouth daily. [facility] insulin detemir U-100 (LEVEMIR FLEXTOUCH U-100 INSULN) 100 u nit/mL (3 mL) Pen 2019-11-22 00:00:00 2020-01-26 00:00:00 No Inadequa tely controlled diabetes mellitus 25U QD Inject 25 Units under the skin daily for 90 day s. [facility] insulin aspart U-100 (NOVOLOG FLEXPEN U-100 INSULIN) 100 uni t/mL (3 mL) pen 2019-11-22 00:00:00 2020-01-26 00:00:00 No Inadequa tely controlled diabetes mellitus 10U Inject 10 Units under the skin 3 times daily. [facility] metFORMIN (GLUCOPHAGE) 1,000 mg tablet 3 00:00:00 2020-01-26 00:00:00 No Inadequately controlled diabetes mellitus 1000m g Take 1 tablet by mouth 2 times daily (with meals). [facility] blood glucose (PRECISION XTRA TEST STRIPS) test strips 2019-07-10 00:00:00 Yes Uncontrolled type 2 diabetes mellitus without complication, without long- term current use of insulin Use to test blood sugar three times daily [facility] lancets 28 gauge 2019-07-10 00:00:00 Yes Uncontrolled type 2 diabetes mellitus without complication, without long-term current use of insulin Use to test blood sugar three times daily [facility] blood glucose test strips 2019-07-10 00:00:00 Yes Inadequately controlled diabetes mellitus 1{each} Use to test blood sugar three times alison y. [facility] pen needle, diabetic 31 gauge x 3/16" needles 2019-07-10 00: 00:00 Yes Inadequately controlled diabetes mellitus Inject under the skin 5 times daily. [facility] blood glucose meter 2019-07-10 00:00:00 Yes Uncontrolled type 2 diabetes mellitus without complication, without long-term current use of insulin Use as directed.. [facility] insulin aspart U-100 (NOVOLOG FLEXPEN U-100 INSULIN) 100 uni t/mL (3 mL) pen 2019-07-10 00:00:00 2019-11-22 00:00:00 No Inadequa tely controlled diabetes mellitus 10U Q.[id number] Inject 10 Units u nder the skin 3 times daily (before meals). [facility] atorvastatin (LIPITOR) 40 mg tablet 2019-07-10 00:00:0 0 2019-11-22 00:00:00 No Hyperlipidemia, unspecified hyperlipidemia type 40mg Take 1 tablet by mouth at bedtime nightly. [facility] lisinopril (PRINIVIL, ZESTRIL) 20 mg tablet 2018 00:00:00 2019-11-22 00:00:00 No Inadequately controlled diabetes mellitus 20mg QD Take 1 tablet by mouth daily. [facility] insulin detemir U-100 (LEVEMIR FLEXTOUCH U-100 INSULN) 100 u nit/mL (3 mL) Pen 2019-07-10 00:00:00 2019-11-22 00:00:00 No Uncontro lled type 2 diabetes mellitus without complication, without long-term current use of insulin 15U QD Inject 15 Units under the skin daily. [facility] clotrimazole (LOTRIMIN AF, CLOTRIMAZOLE,) 1 % topical cream 2018-05-20 00:00:00 2019-11-22 00:00:00 No Tinea pedis of both feet Q.5D Apply to affected area 2 times daily. [facility] blood glucose meter (PRECISION XTRA GLUCOMETER) 2016-05-14 0 0:00:00 Yes Uncontrolled type 2 diabetes mellitus without complication, without long-term current use of insulin Use as directed.. [facility] Atorvastatin Calcium 10 Mg Tablet Atorvastatin Calcium 10 Mg Tablet Yes 10 Today At 9:00PM [facility] Lisinopril 10 Mg Tablet Lisinopril 10 Mg Tablet Yes 10 Daily [facility] Immunizations Ordered Immunization Name Filled Immunization Name Date Status Comments Source Influenza, Injectable, Quadrivalent 2019-11-22 00:00:00 Co mpleted [facility] Pneumococcal <Unspecified> 2017-05-24 00:00:00 Completed [facility] Vital Signs Vital Name Observation Time Observation Value Comments Source Systolic blood pressure 2020-04-12 20:20:00 125 mm[Hg] [facility] Diastolic blood pressure 2020-04-12 20:20:00 75 mm[Hg] [facility] Heart rate 2020-04-12 20:20:00 99 /min [facility] Body temperature 2020-04-12 20:20:00 38.44 [facility] Respiratory rate 2020-04-12 20:20:00 18 /min [facility] Oxygen saturation in Arterial blood by Pulse oximetry 04-12 20:20:00 97 /min [facility] Body height 2019-11-22 14:22:00 172.7 cm [facility] Body weight 2019-11-22 14:22:00 86.365 kg [facility] BMI 2019-11-22 14:22:00 28.95 kg/m2 [facility] Procedures Procedure Date / Time Performed Performing Clinician Sourc e LACTIC ACID 2020-04-12 18:12:00 JayTrae Ramirez [facility] GLUCOSE POC 2020-04-12 18:03:00 Unknown, Provider [facility] XRAY CHEST 2 VIEWS 2020-04-12 16:30:00 Trae Elena [facility] VBG POC 2020-04-12 15:54:00 Unknown, Provider [facility] CBC/DIFF 2020-04-12 15:00:00 Trae Elena [facility] CBC 2020-04-12 [facility]:00[facility] LACTIC ACID 2020-04-12 15:00:00 [facility] BMP POC 2020-04-12 12:58:00 Unknown, Provider [facility] CREATININE POC 2020-04-12 12:58:00 Unknown, Provider Del [facility] DIABETIC FOOT EXAM 2019-11-22 15:36:20 Tony Wesley [facility] Intramedullary rodding of tibia 2018-04-09 00:00:00 AUREA MACIEL [facility] Computed tomography of brain without radiopaque contrast 201 05-25-20 00:00:00 NITISH VEGAFIFI Vasques [facility] Computed tomography of cervical spine without contrast 04-08 00:00:00 NITISH VEGAFIFI Hardy [facility] Plan of Care Planned Activity Planned Date Details Comments Source Future Scheduled Test 2020-11-22 00:00:00 DM Foot Exam (Year ly) [code = DM Foot Exam (Yearly)] [facility] Scheduled Test 2020-07-08 00:00:00 Hemoglobin A1c jeannie surement (procedure) [code = 45902298] [facility] Scheduled Test 2020-03-24 00:00:00 DM Retinal Exam (Y early) [code = DM Retinal Exam (Yearly)] [facility] Encounters Start Date/Time End Date/Time Encounter Type Admission Type Att[facility] Care Department Encounter ID Source 2020-01-21 00:00:00 2020-01-21 00:00:00 Outpatient [facility] [id number] [facility] 2019-11-22 14:22:46 2019-11-22 14:22:46 Outpatient [facility] [id number] [facility] 2019-11-05 00:00:00 2019-11-05 00:00:00 Outpatient [facility] [id number] [facility] 2019-08-27 00:00:00 2019-08-27 00:00:00 Outpatient [facility] [id number] [facility] 2019-08-19 00:00:00 2019-08-19 00:00:00 Outpatient [facility] [id number] [facility] 2019-08-05 00:00:00 2019-08-05 00:00:00 Outpatient [facility] [id number] [facility] 2019-07-08 10:30:18 2019-07-08 10:30:18 Outpatient [facility] [id number] [facility] 2019-07-07 16:41:14 2019-07-07 16:41:14 Emergency [facility] [id number] [facility] 2019-07-07 15:11:00 2019-07-07 15:11:00 Inpatient [facility] [id number] [facility] 2019-07-03 20:05:00 2019-07-03 23:09:[address] [facility] [id number] [facility] 2019-07-02 00:00:00 2019-07-02 00:00:00 Outpatient [facility] [id number] [facility] 2019-05-17 00:00:00 2019-05-17 00:00:00 Outpatient [facility] [id number] [facility] 2019-03-24 13:45:18 2019-03-24 13:45:18 Outpatient [facility] [id number] [facility] 2019-03-05 00:00:00 2019-03-05 00:00:00 Outpatient [facility] [id number] [facility] 2019-02-03 14:14:55 2019-02-03 14:14:55 Outpatient [facility] [id number] [facility] 2019-02-03 00:00:00 2019-02-03 00:00:00 Outpatient [facility] [id number] [facility] 2018-12-21 00:00:00 2018-12-21 00:00:00 Outpatient [facility] [id number] [facility] 2018-12-11 00:00:00 2018-12-11 00:00:00 Outpatient [facility] [id number] [facility] 2018-12-07 14:29:35 2018-12-07 14:29:35 Outpatient [facility] [id number] [facility] 2018-12-07 13:32:44 2018-12-07 13:32:44 Outpatient [facility] [id number] [facility] 2018-04-08 06:39:00 2018-04-12 14:27:00 Discharged Inpatient [address] [facility] [id number] [facility] Results Test Description Test Time Test Comments Results Result Comments Source Lactic Acid 2020-04-12 19:16:00 Test Item Lactic Acid (test code = 36283431) 1.4 mmol/L 0.5-2.2 Lab Interpretation (test code = 25904-8) Normal [facility] GLUCOSE POC docked [id number] 18:04:00* Test Item Value Reference Range Interpretation Comments Glucose POC (test code = 83218809) 214 mg/dL 74-106 H Lab Interpretation (test code = 44527-8) Abnormal [facility] [id number] 16:35:39IMPRESSION: Patchy airspace opacities in the right midlung, right lower lobe andleft lower lobe are concerning for multifocal pneumonia. Signed By: Shannan Gonzales MD, 04/12/2020 4:35 PM Interface, Rad/Mammog In - 04/12/2020 4:47 PM CDTEXAM: XRAY CHEST 2 VIEWSINDICATION: coughCOMPARISON: None FINDINGS: Portable technique limits evaluation. TUBES and LINES: None.LUNGS: Patchy airspace opacities in the right midlung, right lower lobeand left lower lobe are concerning for pneumonia. Peribronchial cuffingsuggests endobronchial spread of disease or reactive airway disease.PLEURA: No pneumothorax. No pleural effusion.HEART AND MEDIASTINUM: Cardiomediastinal silhouette is unremarkable.Unremarkable visualized aorta.BONES AND SOFT TISSUES: No acute osseous lesion. Soft tissues areunremarkable. I MPRESSIONIMPRESSION: Patchy airspace opacities in the right midlung, right lower lobe andleft lower lobe are concerning for multifocal pneumonia.Signed By: Shannan Gonzales MD, 04/12/2020 4:35 PM[facility]CBC/[id number] 16:05:00* Test Item Value Reference Range Interpretation Comments WBC (test code = 6690-2) 6.7 K/uL 4.5-12 RBC (test code = 789-8) 4.89 4.60- 6.20 M/uL Hemoglobin (test code = 718-7) 13.6 g/dL 14-18 L Hematocrit (test code = 4544-3) 42.4 % 40-54 MCV (test code = 787-2) 86.7 fL 82-92 MCH (test code = 785-6) 27.8 pg 27-31 MCHC (test code = 786-4) 32.1 g/dL 32-36 RDW (test code = 79145-6) 40.9 fL 35.1-43.9 Platelet (test code = 777-3) 187 K/uL 150-400 Mean Platelet Volume (test code = 29290-7) 11.9 fL 9.4-12.4 Percent NRBC (test code = 57763167) 0.0 % Neutrophil (test code = 770-8) 67.2 % 34-67.9 Lymphs (test code = 736-9) 23.2 % 21.8-50 Monocytes (test code = 5905-5) 8.9 % 5.3-12 Eos (test code = 713-8) 0.0 % 0.8-5 L Basos (test code = 706-2) 0.3 % 0.2-1.2 Immature Granulocytes (test code = 86365433) 0.4 % 0-0.5 Neutrophils (Absolute) (test code = 82743081) 4.52 K/uL 1.78-5.3 6 Lymphs (Absolute) (test code = 45426823) 1.56 K/uL 1.32-3.57 Monocytes(Absolute) (test code = 10123246) 0.60 K/uL 0.3-0.82 Eos (Absolute) (test code = 80031116) 0.00 K/uL 0.04-0.54 L Baso (Absolute) (test code = 99726218) 0.02 K/uL 0.01-0.08 Immature Grans (Abs) (test code = 38921014) 0.03 K/uL 0-0.03 Absolute NRBC (test code = 73312081) 0.00 K/uL Lab Interpretation (test code = 10030-0) Abnormal [facility] VBG POC docked [id number] 16:04:00* Test Item Value Reference Range Interpretation Comments pH, Faraz POC (test code = 24022944) 7.38 7.33-7.43 pCO2,Faraz POC (test code = 67029796) 43.4 38- 50 mmHg PO2, Venous POC (BKR) (test code = 35629293) 27 50- 75 mm Hg L Ionized Calcium POC (test code = 56108171) 1.11 mmol/L 1.15-1.29 L HCO3, Faraz POC (test code = 06274352) 25 mmol/L 22-26 TCO2 POC (test code = 43221907) 27 mmol/L 21-32 Base Excess Faraz POC (test code = 59106111) 0 mmol/L Sample Type (test code = 35986958) IVEN Physician Notified % Sat, Faraz POC (test code = 63359972) 48 % Lab Interpretation (test code = 63580-7) Abnormal [facility] CREATININE POC docked [id number] 13:11:00* Test Item Value Reference Range Interpretation Comments Creatinine POC (test code = 40362299) 0.8 mg/dL 0.6-1.3 Physician Notified GFR, Estimated (test code = 42984385) >90 >=90 mL/min/1.73 m2 Lab Interpretation (test code = 17666-3) Normal [facility] BMP POC docked [id number] 13:10:00* Test Item Value Reference Range Interpretation Comments Sodium POC (test code = 93530762) 131 mmol/L 136-145 L Potassium POC (test code = 64932861) 4.4 mmol/L 3.5-5.1 Chloride POC (test code = 89238775) 99 mmol/L 98-107 TCO2 POC (test code = 25765986) 25 mmol/L 21-32 Physician Notified Urea Nitrogen POC (test code = 17703651) 20 mg/dL 7-18 H Glucose POC (test code = 66701298) 327 mg/dL 74-106 H Hemoglobin POC (test code = 70223494) 16.7 g/dL 12-16 H Hematocrit POC (test code = 13788748) 49.0 % 37-47 H Lab Interpretation (test code = 91047-2) [facility] [id number] 15:36:20Tony Wesley MD 11/22/2019 4:45 PMDiabetic Foot Exam was performed at 11/22/2019 3:52 PM. Right foot sensation is normal, right foot pulses are normal, right foot appearance is abnormal. Left foot sensation is normal, left foot pulses are normal, left foot appearance is abnormal. Multiple nails thickening ; scaly soles [facility] [id number] 12:04:00* Test Item Value Reference Range Interpretation Comments Bedside Glucose (test code = 52273-3) 301 70-120 H Meter ID: [id number] [facility] 07:31:00* Test Item Value Reference Range Interpretation Comments Hemoglobin (test code = 88388-1) 8.2 14.0-18.0 L [facility]2018-06-24 07:31:00* Test Item Value Reference Range Interpretation Comments Hematocrit (test code = 4544-3) 24.6 38.2-49.6 L [facility]icsF[facility] V[facility] [id number] 12:41:00 [facility] [address] [place] [address] Patient Name: YVONNE LAWLER MR #: [id number] : [birth year] Age/Sex: 42/M Req #: [id number] Adm Physician: FREDDY RHOADES MD Ordered by: SAMIRA MACIEL MD Report #: [id number] Locati on: MED/SURG Room/Bed: [facility] Procedure: [id number] DX/ FEMUR ONE VIEW RIGHT Exam Date: Exam Time: R EPORT STATUS: Signed PROCEDURE: FEMUR ONE VIEW RIGHT TECHNIQUE: AP righ t femur totaling 2 radiographs INDICATION: Postsurgical evaluation. COMPAR YOLIE: None. FINDINGS: See conclusion. CONCLUSION: 1. Anteg rade right femoral jimena with intact proximal and distal anchoring screws. Near -anatomic alignment. 2. Expected regional postsurgical changes including subcu taneous emphysema, edema, and surgical pascual. 3. No acute abnormality. Dictated by: Funmi Lim M.D. on 04/09/2018 at 12:41 Electronically approved by: Funmi Lim M.D. on 04/09/2018 at 12:41 Dictated By: FUNMI LIM MD 1241 Transcribed By: NATE on 04/09/18 1241 COPY TO : SAMIRA MACIEL MD Platelet [id number] 07:54:00* Test Item Value Reference Range Interpretation Comments Platelet Estimate (test code = 40029-1) ADEQUATE [facility]ics[facility]ate[facility] Morphology [id number] 07:54:00* Test Item Value Reference Range Interpretation Comments Platelet Morphology Comment (test code = 54426-8) NORMAL [facility]icsHypochromasia2018-06-21 07:54:00* Test Item Value Reference Range Interpretation Comments Hypochromasia (test code = 728-6) SLIGHT [facility]icsAnisocytosis2018-06-21 07:54:00* Test Item Value Reference Range Interpretation Comments Anisocytosis (test code = 702-1) SLIGHT [facility] ClinicsRed Cell Morphology [id number] 07:54:00* Test Item Value Reference Range Interpretation Comments Red Cell Morphology Comment (test code = 6742-1) NORMAL [facility] Center[facility] [id number] 06:59:00* Test Item Value Reference Range Interpretation Comments Sodium Level (test code = 2951-2) 135 136-145 L [facility] ClinicsPotassium Zfpqw0364-11-20 06:59:00* Test Item Value Reference Range Interpretation Comments Potassium Level (test code = 2823-3) 3.9 3.5-5.1 [facility] ClinicsChloride Anjme8913-34-63 06:59:00* Test Item Value Reference Range Interpretation Comments Chloride Level (test code = 2075-0) 102 98-107 [facility] ClinicsCarbon Dioxide Rgyds6627-03-01 06:59:00* Test Item Value Reference Range Interpretation Comments Carbon Dioxide Level (test code = 2028-9) 24 22-29 [facility] ClinicsAnion Snu5971-43-03 06:59:00* Test Item Value Reference Range Interpretation Comments Anion Gap (test code = 63719-7) 12.9 8-16 [facility] ClinicsBlood Urea Aneymfam3096-00-92 06:59:00* Test Item Value Reference Range Interpretation Comments Blood Urea Nitrogen (test code = 3094-0) 15 7-26 [facility] ClinicsCreatinine2018-06-21 06:59:00* Test Item Value Reference Range Interpretation Comments Creatinine (test code = 2160-0) 0.83 0.72-1.25 [facility] ClinicsBUN/Creatinine Gxvvf5831-55-57 06:59:00* Test Item Value Reference Range Interpretation Comments BUN/Creatinine Ratio (test code = 3097-3) 18 6-25 [facility] ClinicsEstimat Glomerular Filtration Rate 2018-04-09 06:59:00* Test Item Value Reference Range Interpretation Comments Estimat Glomerular Filtration Rate (test code = 66551-2) 60- >60 Ranges were taken from the National Kidney Disease Education Program and the [facility] [employer] literature.Reference ranges:60 or greater: Qavebo64-64 ( for 3 consecutive months): Chronic kidney disease 15 or less: Kidney failureEast [facility] and ClinicsGlucose Rqlep4577-72-98 06:59:00* Test Item Value Reference Range Interpretation Comments Glucose Level (test code = MCN4802) 234 74-118 H [facility] ClinicsCalcium Mvkbl8759-60-99 06:59:00* Test Item Value Reference Range Interpretation Comments Calcium Level (test code = 00002-7) 9.0 8.4-10.2 [facility] ClinicsTotal Palziyviu1270-96-08 06:59:00* Test Item Value Reference Range Interpretation Comments Total Bilirubin (test code = 1975-2) 0.9 0.2-1.2 [facility] ClinicsAspartate Amino Transf (AST/SGOT) 2018-04-09 06:59:00* Test Item Value Reference Range Interpretation Comments Aspartate Amino Transf (AST/SGOT) (test code = Aspartate Amino Transf (AST/SGOT)) 17 5-34 [facility] ClinicsAlanine Aminotransferase (ALT/SGPT) 2018-04-09 06:59:00* Test Item Value Reference Range Interpretation Comments Alanine Aminotransferase (ALT/SGPT) (test code = 1742-6) 32 0-55 [facility] ClinicsTotal Itnczpd2292-28-18 06:59:00* Test Item Value Reference Range Interpretation Comments Total Protein (test code = 2885-2) 7.1 6.5-8.1 [facility] ClinicsAlbumin2018-06-21 06:59:00* Test Item Value Reference Range Interpretation Comments Albumin (test code = 1751-7) 3.6 3.5-5.0 [facility] ClinicsGlobulin2018-06-21 06:59:00* Test Item Value Reference Range Interpretation Comments Globulin (test code = 15556-9) 3.5 2.3-3.5 [facility] ClinicsAlbumin/Globulin Gqqlw9233-26-81 06:59:00 * Test Item Value Reference Range Interpretation Comments Albumin/Globulin Ratio (test code = 1759-0) 1.0 0.8-2.0 [facility] ClinicsAlkaline Jsejvrmizgv6422-67-93 06:59:00* Test Item Value Reference Range Interpretation Comments Alkaline Phosphatase (test code = 6768-6) 111 40-150 [facility] ClinicsTriglycerides Ixdmg9851-34-98 06:59:00* Test Item Value Reference Range Interpretation Comments Triglycerides Level (test code = 2571-8) 306 0-149 H [facility] ClinicsCholesterol Ymogn9615-01-36 06:59:00* Test Item Value Reference Range Interpretation Comments Cholesterol Level (test code = 2093-3) 186 0-199 Less than 200 mg/dL Low Hafj158 - 239 mg/dL Borderline Ptmx368 m g/dl and greater High Risk [facility] ClinicsLDL Pzwisrzorqa2424-68-42 06:59:00* Test Item Value Reference Range Interpretation Comments LDL Cholesterol (test code = 2089-1) 96 60-130 [facility] ClinicsHDL Tdjmfzdawsv2458-10-34 06:59:00* Test Item Value Reference Range Interpretation Comments HDL Cholesterol (test code = 2085-9) 29 40-60 L [facility] ClinicsCholesterol/HDL Bnnkj2224-61-67 06:59:00 * Test Item Value Reference Range Interpretation Comments Cholesterol/HDL Ratio (test code = 9830-1) 6.4 3.9-4.7 H [facility] ClinicsWhite Blood Zgewy5241-07-51 06:49:00* Test Item Value Reference Range Interpretation Comments White Blood Count (test code = 6690-2) 8.26 4.8-10.8 [facility] ClinicsRed Blood Ibryl4449-78-78 06:49:00* Test Item Value Reference Range Interpretation Comments Red Blood Count (test code = 789-8) 4.33 4.3-5.7 [facility] ClinicsMean Corpuscular Rshzts6047-95-33 06:49:00* Test Item Value Reference Range Interpretation Comments Mean Corpuscular Volume (test code = 787-2) 84.5 81-99 [facility] ClinicsMean Corpuscular Jxrhqzvdmi1614-96-65 06:49:00* Test Item Value Reference Range Interpretation Comments Mean Corpuscular Hemoglobin (test code = 785-6) 27.9 28-32 L [facility] ClinicsMean Corpuscular Hemoglobin Concent 2018-04-09 06:49:00* Test Item Value Reference Range Interpretation Comments Mean Corpuscular Hemoglobin Concent (test code = 786-4) 33.1 31-35 [facility] ClinicsRed Cell Distribution Pawiv1665-93-24 06:49:00* Test Item Value Reference Range Interpretation Comments Red Cell Distribution Width (test code = 72353-0) 12.8 11.7 -14.4 [facility] ClinicsPlatelet Wvqsq3920-05-20 06:49:00* Test Item Value Reference Range Interpretation Comments Platelet Count (test code = 777-3) 206 140-360 [facility] ClinicsNeutrophils (%) (Auto)2018-04-09 06:49:00 * Test Item Value Reference Range Interpretation Comments Neutrophils (%) (Auto) (test code = 54628-9) 66.6 38.7-80.0 [facility] ClinicsLymphocytes (%) (Auto)2018-04-09 06:49:00 * Test Item Value Reference Range Interpretation Comments Lymphocytes (%) (Auto) (test code = 736-9) 21.3 18.0-39.1 [facility] ClinicsMonocytes (%) (Auto)2018-04-09 06:49:00* Test Item Value Reference Range Interpretation Comments Monocytes (%) (Auto) (test code = 5905-5) 10.0 4.4-11.3 [facility] ClinicsEosinophils (%) (Auto)2018-04-09 06:49:00 * Test Item Value Reference Range Interpretation Comments Eosinophils (%) (Auto) (test code = 713-8) 1.1 0.0-6.0 [facility] ClinicsBasophils (%) (Auto)2018-04-09 06:49:00* Test Item Value Reference Range Interpretation Comments Basophils (%) (Auto) (test code = 706-2) 0.5 0.0-1.0 [facility] ClinicsIM GRANULOCYTES %2018-04-09 06:49:00* Test Item Value Reference Range Interpretation Comments IM GRANULOCYTES % (test code = IM GRANULOCYTES %) 0.5 0.0- 1.0 [facility] ClinicsNeutrophils # (Auto)2018-04-09 06:49:00* Test Item Value Reference Range Interpretation Comments Neutrophils # (Auto) (test code = 751-8) 5.5 2.1-6.9 [facility] ClinicsLymphocytes # (Auto)2018-04-09 06:49:00* Test Item Value Reference Range Interpretation Comments Lymphocytes # (Auto) (test code = 35153-2) 1.8 1.0-3.2 [facility] ClinicsMonocytes # (Auto)2018-04-09 06:49:00* Test Item Value Reference Range Interpretation Comments Monocytes # (Auto) (test code = 742-7) 0.8 0.2-0.8 [facility] ClinicsEosinophils # (Auto)2018-04-09 06:49:00* Test Item Value Reference Range Interpretation Comments Eosinophils # (Auto) (test code = 711-2) 0.1 0.0-0.4 [facility] ClinicsBasophils # (Auto)2018-04-09 06:49:00* Test Item Value Reference Range Interpretation Comments Basophils # (Auto) (test code = 704-7) 0.0 0.0-0.1 [facility] ClinicsAbsolute Immature Granulocyte (auto 2018-04-09 06:49:00* Test Item Value Reference Range Interpretation Comments Absolute Immature Granulocyte (auto (patrick t code = Absolute Immature Granulocyte (auto) 0.04 0-0.1 [facility] ClinicsCreatine Kinase UC4331-67-68 21:35:00* Test Item Value Reference Range Interpretation Comments Creatine Kinase MB (test code = 13499-4) 1.30 0-5.0 [facility] ClinicsTroponin B2973-97-36 21:35:00* Test Item Value Reference Range Interpretation Comments Troponin I (test code = GPO2350) -0.001 0-0.300 [facility] ClinicsCreatine Doijdt4808-57-92 21:26:00* Test Item Value Reference Range Interpretation Comments Creatine Kinase (test code = 2157-6) 281 30-200 H [facility] ClinicsUrine Rmjso7542-29-40 06:56:00* Test Item Value Reference Range Interpretation Comments Urine Color (test code = 5778-6) STRAW YELLOW [facility] ClinicsUrine Ojljyjc4070-66-21 06:56:00* Test Item Value Reference Range Interpretation Comments Urine Clarity (test code = 93051-2) CLEAR CLEAR [facility] ClinicsUrine Specific Kajocwx6516-27-84 06:56:00 * Test Item Value Reference Range Interpretation Comments Urine Specific [place] (test code = 5811-5) 1.010 1.010-1.02 5 [facility] ClinicsUrine wF7019-83-69 06:56:00* Test Item Value Reference Range Interpretation Comments Urine pH (test code = 60850-8) 6 5-7 [facility] ClinicsUrine Leukocyte Xciqbswn0803-49-95 06:56:00* Test Item Value Reference Range Interpretation Comments Urine Leukocyte Esterase (test code = 5799-2) NEGATIVE NEGATIVE [facility] ClinicsUrine Xezmhng3440-29-37 06:56:00* Test Item Value Reference Range Interpretation Comments Urine Nitrite (test code = 52667-3) NEGATIVE NEGATIVE [facility] Wxlueip4476-36-23 06:56:00* Test Item Value Reference Range Interpretation Comments Urine Protein (test code = 5804-0) 1+ NEGATIVE H [facility] Glucose (UA)2018-04-08 06:56:00* Test Item Value Reference Range Interpretation Comments Urine Glucose (UA) (test code = 2349-9) 3+ NEGATIVE H [facility] ClinicsUrine Kzpcyez9466-24-28 06:56:00* Test Item Value Reference Range Interpretation Comments Urine Ketones (test code = 18627-7) 1+ NEGATIVE H [facility] Sgphhftzxpae9810-54-00 06:56:00* Test Item Value Reference Range Interpretation Comments Urine Urobilinogen (test code = 32836-1) 0.2 0.2-1 [facility] Kbvopyocm6230-93-45 06:56:00* Test Item Value Reference Range Interpretation Comments Urine Bilirubin (test code = 1978-6) NEGATIVE NEGATIVE [facility] Ohvoc2175-72-88 06:56:00* Test Item Value Reference Range Interpretation Comments Urine Blood (test code = 93652-7) NEGATIVE NEGATIVE [facility] ClinicsUrine UDO9752-88-70 06:56:00* Test Item Value Reference Range Interpretation Comments Urine WBC (test code = 5821-4) 0-5 0-5 [facility] ClinicsUrine NQT2941-80-98 06:56:00* Test Item Value Reference Range Interpretation Comments Urine RBC (test code = 53664-0) NONE 0-5 [facility] ClinicsUrine Ssqekjdh3348-81-31 06:56:00* Test Item Value Reference Range Interpretation Comments Urine Bacteria (test code = 53797-3) RARE NONE [facility] ClinicsUrine Epithelial Nuziq7309-74-93 06:56:00 * Test Item Value Reference Range Interpretation Comments Urine Epithelial Cells (test code = 11323-9) NONE NONE [facility] ClinicsUrine Hyaline Twgxx3245-89-28 06:56:00* Test Item Value Reference Range Interpretation Comments Urine Hyaline Casts (test code = 92937-5) 6-10 0-1 H [facility] ClinicsUrine Opiates Vhmgsb5236-24-63 06:54:00* Test Item Value Reference Range Interpretation Comments Urine Opiates Screen (test code = 20678-0) POSITIVE NEGATIVE H This test provides only a screen. Positive results should be repeated by a confi rmatory test.[facility] ClinicsUrine Barbiturates Screen 2018-04-08 06:54:00* Test Item Value Reference Range Interpretation Comments Urine Barbiturates Screen (test code = 879773931) NEGATIVE NEGA TIVE [facility] ClinicsUrine Phencyclidine Jbvzth1569-55-98 06:54:00* Test Item Value Reference Range Interpretation Comments Urine Phencyclidine Screen (test code = 66614-7) NEGATIVE NEGAT AMBER [facility] Amphetamines Evauuz8445-49-69 06:54:00* Test Item Value Reference Range Interpretation Comments Urine Amphetamines Screen (test code = 05487-8) NEGATIVE NEGATI VE [facility] ClinicsUrine Methamphetamines Fyrkkp3046-81-71 06:54:00* Test Item Value Reference Range Interpretation Comments Urine Methamphetamines Screen (test code = Urine Metha mphetamines Screen) NEGATIVE NEGATIVE [facility] ClinicsUrine Benzodiazepines Afaqob3640-12-83 06:54:00* Test Item Value Reference Range Interpretation Comments Urine Benzodiazepines Screen (test code = 00879-6) NEGATIVE NEG ATIVE [facility] ClinicsUrine Cocaine Qmgtqn8332-11-10 06:54:00* Test Item Value Reference Range Interpretation Comments Urine Cocaine Screen (test code = 3398-5) POSITIVE NEGATIVE H This test provides only a screen. Positive results should be repeated by a confi rmatory test.[facility] ClinicsUrine Cannabinoids Screen 2018-04-08 06:54:00* Test Item Value Reference Range Interpretation Comments Urine Cannabinoids Screen (test code = 56097-3) NEGATIVE NEGATI VE THESE RESULTS ARE FOR MEDICAL TREATMENT ONLYTHIS REPORT CONTAINS UNCONFIR MED SCREENING RESULTS*POSITIVE RESULTS WILL BE CONFIRMED BY REFERENCE LAB UPON R EQUEST CUT-OFFDRUG CLASS CONCENTRATION ng/mLAmphetamines 1000Methamphetamines 1000Cocaine 300Opiate 300Phencyc lidine 25Cannabinoid 50Barbiturates 300Benzodiazepine 300Methadone 300[facility] ClinicsUrine Methadone Dnusaz4502-78-54 06:54:00* Test Item Value Reference Range Interpretation Comments Urine Methadone Screen (test code = 77886-6) NEGATIVE NEGATIVE THESE RESULTS ARE FOR MEDICAL TREATMENT ONLYTHIS REPORT CONTAINS UNCONFIR MED SCREENING RESULTS*POSITIVE RESULTS WILL BE CONFIRMED BY REFERENCE LAB UPON R EQUEST CUT-OFFDRUG CLASS CONCENTRATION ng/mLAmphetamines 1000Methamphetamines 1000Cocaine Metabolite 300Opiate 300Phencyc lidine 25Cannabinoid 50Barbiturates 300Benzodiazepine 300Methadone 300[facility] ClinicsArterial Blood iJ7545-80-57 06:52:00* Test Item Value Reference Range Interpretation Comments Arterial Blood pH (test code = 2744-1) 7.34 7.31-7.41 [facility] ClinicsArterial Blood Partial Pressure CO2 2018-04-08 06:52:00* Test Item Value Reference Range Interpretation Comments Arterial Blood Partial Pressure CO2 (test code = 2018-8) 33 41-51 L [facility] ClinicsArterial Blood Partial Pressure O2 2018-04-08 06:52:00* Test Item Value Reference Range Interpretation Comments Arterial Blood Partial Pressure O2 (test code = 2018-8) 80 80-105 [facility] ClinicsArterial Blood YAN54995-09-62 06:52:00* Test Item Value Reference Range Interpretation Comments Arterial Blood HCO3 (test code = 1960-4) 18 23-28 L [facility] ClinicsArterial Blood Base Gygjok3987-75-83 06:52:00* Test Item Value Reference Range Interpretation Comments Arterial Blood Base Excess (test code = 1925-7) -8.0 -2-3 L [facility] ClinicsArterial Blood Oxygen Saturation 2018-04-08 06:52:00* Test Item Value Reference Range Interpretation Comments Arterial Blood Oxygen Saturation (test code = 2708-6) 95.0 95-98 [facility] ClinicsFiO22018-06-20 06:52:00* Test Item Value Reference Range Interpretation Comments FiO2 (test code = FiO2) 21 PT ON [facility] CenterEthyl Alcohol Ewjug4926-53-61 06:03:00* Test Item Value Reference Range Interpretation Comments Ethyl Alcohol Level (test code = 5643-2) 137.8 0.0-10.0 H [facility] CenterCT CERVICAL SPINE IV0742-40-56 05:52:00 [facility] [address] [address] Patient Name: YVONNE LAWLER MR #: [id number] : [birth year] Age/Sex: 42/M Req #: [id number] Adm Physician: Ordered by: CORINNE VEGA MD Report #: [id number] Location: ER Room/Bed: Procedure: [id number] CT/CT CERVICAL SPINE WO Exam Date: Exam Time: REPORT STATUS: Signed Examinat ion: CT CERVICAL SPINE WITHOUT CONTRAST HISTORY:Neck pain. Fall. COMPARIS ON:None. TECHNIQUE: Multidetector helical axial images were obtained without c ontrast from the foramen magnum to T1. Coronal and sagittal reformatted image s were done. Bone and soft tissue windows were evaluated. FINDINGS: Alignment:Normal alignment and lordosis. Vertebrae: Normal height and density . No acute fracture, infection or neoplasm. Disc space heights: Normal heigh t. Caliber of spinal canal: Developmentally normal. Posterior fossa and c raniocervical junction: Foramen magnum patent. No Chiari 1 malformation. Soft tissues: No abnormality. Degenerative changes: No disc bulge/ hernia tion or foraminal or canal stenosis. Additional findings: None. IM PRESSION: No abnormalities. Signed by: Dr. Lauren Lopez M.D. on 04/08 6:00 AM Dictated By: LAUREN SMITH MD Electronically Si gned By: LAUREN SMITH MD on 04/08/18599 Transcribed By: TAY valle 04/08/18599 COPY TO: CORINNE VEGA MD CT BRAIN LN9330-44-53 05:45:00 [address] [address] Patient Name: YVONNE LAWLER MR #: [id number] : 1975 Age/Sex: 42/M Req #: [id number] Adm Physician: Ordered by: CORINNE VEGA MD Report #: [id number] Location: ER Room/Bed: Procedure: [id number] CT/CT BRAIN WO Exam Date: Exam Time: REPORT STATUS: Signed Examination: CT h ead without contrast Clinical Indication: Fall; head injury. Technique: Obando saxial noncontrast images from the skull base through the vertex were obtained . Sagittal and coronal reformatted images were done. Comparison: None. Fi ndings: Scalp: No abnormalities. Bones: Intact. No fractures. No blastic or lytic lesions. Brain sulci: Appropriate for patient's age. Ventricle s: Normal in size and configuration. No hydrocephalus. Extra-axial spac e: No abnormalities. Parenchyma: No abnormal densities. No masses, h emorrhage, or acute or chronic cortical based vascular insults. Suprasellar region: No abnormalities. Craniocervical junction: The foramen magnum is hurtado nt. No Chiari one malformation. Impression: No intracranial abnorma lity. Signed by: Dr. Lauren Lopez M.D. on 04/08/2018 5:49 AM Dic tated By: LAUREN SMITH MD 8 Transcribed By: TAY on 04/08/18548 CO PY TO: CORINNE VEGA MD Magnesium Byely6747-53-31 05:14:00* Test Item Value Reference Range Interpretation Comments Magnesium Level (test code = 00151-4) 2.1 1.3-2.1 [facility] ClinicsProthrombin Gpka9225-95-08 05:06:00* Test Item Value Reference Range Interpretation Comments Prothrombin Time (test code = 5902-2) 13.2 11.9-14.5 [facility] ClinicsProthromb Time International Ratio 2018-04-08 05:06:00* Test Item Value Reference Range Interpretation Comments Prothromb Time International Ratio (test code = 6301-6) 1.08 Oral Anticoagulant Therapy INR Values:1. Low Intensity Therapy 1.5 - 2.02 . Moderate Intensity Therapy 2.0 - 3.03. High Intensity Therapy(1) 2.5 - 3. 54. High Intensity Therapy(2) 3.0 - 4.05. Panic Value INR > 5.0 [facility] ClinicsActivated Partial Thromboplast Time 2018-04-08 05:06:00* Test Item Value Reference Range Interpretation Comments Activated Partial Thromboplast Time (test code = 39125-8) 25.6 23.8-35.5 [facility] ClinicsCHEST SINGLE (PORTABLE)2018-04-08 04:24:00 [address] [place] [address] Patient Name: YVONNE LAWLER MR #: [id number] : 1975 Age/Sex: 42/M Req #: [id number] Adm Physician: Ordered by: CORINNE VEGA MD Report #: [id number] Location: ER Room/Bed: Procedure: DX/CHEST SINGLE (PORTABLE) Exam Da te: 04/08/18 Exam Time: 314 REPORT STATUS: Sig syeda CHEST SINGLE (PORTABLE), 04/08/2018 2:54 AM Technique: CHEST SINGLE ( PORTABLE) Comparison: None available. Clinical history: Fall, fractures Findings: Unremarkable portable appearance of the heart, mediastinum, lungs a nd pleural spaces. Impression: 1. Lines/Tubes: None 2. No acute abnor mality. Signed by: Dr Ru Benedict MD on 04/08/2018 4:25 AM Dictate d By: RU BENEDICT MD 4 COPY TO: CORINNE VEGA MD KNEE RIGHT 1-2 KVQRY8165-03-01 04:15:00 [address] [address] Patient Name: YVONNE LAWLER MR #: [id number] : 1975 Age/Sex: 42/M Req #: [id number] Adm Physician: Ordered by: CORINNE VEGA MD Report #: [id number] Location: ER Room/Bed: Procedure: DX/KNEE RIGHT 1-2 VIEWS Exam Date: 04/08/18 Exam Time: 314 REPORT STATUS: Signed FEMUR TWO VIEW MINIMUM RIGHT, HIP RIGHT 2-3 VW (+/- PELVIS), KNEE RIGHT 1-2 VIEWS Comparison: None Clinical history: Fall, leg pain Findings: Right femoral diaphysis spiral type fracture with3/4 shaft thickness anterior and medial displacement. Additional nondisplaced fracture line is seen within the distal femur fragment. Completely shattered comminuted patellar fracture. Several radiopaque bodies are seen in the region of the patella. Probable joint effusion though poorly assessed on provided views. Impression: 1. Displaced right femoral diaphyseal fracture. 2. Comminuted/scattered right pat ellar fracture. Signed by: Dr Ru Benedict MD on 04/08/2018 4:22 AM Dictated By: RU BENEDICT MD 1 Transcribed By: TAY on 04/08/18421 COPY TO: CORINNE VEGA MD HIP RIGHT 2-3 VW (+/- PELVIS)2018-04-08 04:15:00 [place] [address] Patient Name: YVONNE LAWLER MR #: [id number] : 1975 Age/Sex: 42/M Req #: [id number] Adm Physician: Ordered by: CORINNE VEGA MD Report #: [id number] Location: ER Room/Bed: Procedure: [id number] DX/HIP RIGHT 2-3 VW (+/- PELVIS) E xam Date: Exam Time: REPORT STATUS: Signed FEMUR TWO VIEW MINIMUM RIGHT, HIP RIGHT 2-3 VW (+/- PELVIS), KNEE RIGHT 1-2 V IEWS Comparison: None Clinical history: Fall, leg pain Findings: R ight femoral diaphysis spiral type fracture with3/4 shaft thickness anterior a nd medial displacement. Additional nondisplaced fracture line is seen within t he distal femur fragment. Completely shattered comminuted patellar fracture. S everal radiopaque bodies are seen in the region of the patella. Probable joint effusion though poorly assessed on provided views. Impression: 1. Dis placed right femoral diaphyseal fracture. 2. Comminuted/scattered right patell ar fracture. Signed by: Dr Ru Benedict MD on 04/08/2018 4:22 AM Di ctated By: RU BENEDICT MD 1 COPY TO: ADRIA VEGA MD FEMUR TWO VIEW MINIMUM BQXOH3511-20-06 04:15:00 [address] [place] [address] Patient Name: YVONNE LAWLER MR #: [id number] : 1975 Age/Sex: 42/M Req #: [id number] Adm Physician: Ordered by: CORINNE VEGA MD Report #: [id number] Location: ER Room/Bed: Procedure: [id number] DX/FEMUR TWO VIEW MINIMUM RIGHT Ex am Date: Exam Time: REPORT STATUS: Signed FEMUR TWO VIEW MINIMUM RIGHT, HIP RIGHT 2-3 VW (+/- PELVIS), KNEE RIGHT 1-2 EWS Comparison: None Clinical history: Fall, leg pain Findings: Ri ght femoral diaphysis spiral type fracture with3/4 shaft thickness anterior an d medial displacement. Additional nondisplaced fracture line is seen within th e distal femur fragment. Completely shattered comminuted patellar fracture. Se veral radiopaque bodies are seen in the region of the patella. Probable joint effusion though poorly assessed on provided views. Impression: 1. Disp laced right femoral diaphyseal fracture. 2. Comminuted/scattered right patella r fracture. Signed by: Dr Ru Benedict MD on 04/08/2018 4:22 AM Dic tated By: RU BENEDICT MD 1 COPY TO: NITISH VEGA RD, MD AFB Culture and Tiwbb9445-55-31 12:29:00Specimen/Source: Abscess/LT.CHEEKCollected: 05/27/2017 14:52 Status: Final Last Updated: 07/22/2017 12:29 VFS-Umipp-Iimvbyggyowz (Final) (Final) 05/29/17 No acid fast bacill seen on direct smear Culture Result (Final) (Final) 07/22/17 No growth of AFB at six (6) weeks AFB Culture and Vsxpy0520-84-03 12:47:00Specimen/Source: Wound/LT.FACE ABSCESSCollected: 05/22/2017 16:24 Status: Final Last Updated: 07/15/2017 12:47 PFZ-Rbhsk-Kqzlgvabygbe (Final) (Final) 05/24/17 No acid fast bacill seen on direct smear Culture Result (Final) (Final) 07/15/17 No growth of AFB at six (6) weeks Fungus Culture with Oxdyc5591-04-01 10:07:00Specimen/Source: Abscess/LT.CHEEKCollected: 05/27/2017 14:52 Status: Final Last Updated: 07/14/2017 10:07 Fungal Smear Result (Final) (Final) 05/28/17 No yeast or hyphae seen Culture Result (Final) (Final) 07/14/17 No fungus isolated at 6 weeks Fungus Culture with [id number] 08:18:00 Specimen/Source: Wound/LT.FACEABSCESSCollected: 05/22/2017 16:24 Status: Final Last Updated: 07/07/2017 08:18 Fungal Smear Result (Final) (Final) 05/23/17 No yeast or hyphae seen Culture Result (Final) (Final) 07/07/17 No fungus isolated at 6 weeks Culture, Wound [id number] 09:42:00 Specimen/Source: Abscess/LT.CHEEKCollected: 05/27/2017 14:52 Status: Final Last Updated: 05/31/2017 09:42 Gram Stain (Final) (Final) 05/28/17 Few WBC'S , No Organisms Seen Culture Result (Final) (Final) 05/28/17 No growth 24 hours 05/29/17 Smear from Broth Gram Positive Cocci in Clumps 05/30/17 Fr om broth Yeast 05/31/17 Anaerobic culture:No anaerobes isolated at 3 days I solate (Final) (Final) 05/30/17 From broth Staph-coag negative Isolate Staph-coag negative DARIEL (mcg/ml) Amoxicillin/Clav (AUG)<=4/2 Resistant Ampicillin/Sulb (A/S) <=8/4 Resistant Cefazolin (CFZ) < =4 Resistant Ceftriaxone (ADVISOR TO COMMAND IN COMBAT) 8 Resistant Chloramphenicol ( C) <=8 Susceptible Ciprofloxacin (CP) <=1 Susceptible Clindamycin (CM) <=0.25 Susceptible Erythromycin (E) >4 Resistant Gentamicin (GM) <=1 Susceptible Imipenem (IMP) 8 Resistant Levofloxacin (LEV) <=0.5 Susceptible Linezolid (LNZ) 2 Susceptible Oxacillin (OX1) >2 Resistant Penicillin (P) >8 Resistant Rifampin (RA) <=1 Susceptible Tetracycline (TE) >8 Resistant Trimethoprim/Sulfa >2/38 Resistant (SXT) Vancomycin (VA) 2 Susceptible POC Glucose, [id number] 11:11:00* Test Item Value Reference Range Interpretation Comments POC Glucose (test code = POCGLUC) 252 mg/dL 70-115 H Notify RN or MDIf you consider your patient critically ill, the Abhishek Accu-Chek InformII metershould not be used for Glucose determinations.Draw a venous Glucose and send to the Main Lab for Analysis. POC Glucose, [id number] 07:24:00* Test Item Value Reference Range Interpretation Comments POC Glucose (test code = POCGLUC) 178 mg/dL 70-115 H Notify RN or MDIf you consider your patient critically ill, the Abhishek Accu-Chek InformII metershould not be used for Glucose determinations.Draw a venous Glucose and send to the Main Lab for Analysis. Basic Metabolic [id number] 06:44:00* Test Item Value Reference Range Interpretation Comments Sodium (test code = NA) 136 mmol/L 135-145 N Potassium (test code = K) 4.3 mmol/L 3.5-5.1 N Chloride (test code = CL) 101 mmol/L 98-105 N Carbon Dioxide (test code = CO2) 25 mmol/L 22-29 N Glucose (test code = GLU) 231 mg/dL 70-115 H Blood Urea Nitrogen (test code = BUN) 14 mg/dL 6-20 N Creatinine (test code = CREAT) 1.5 mg/dL 0.7-1.2 H Calcium (test code = CA) 8.7 mg/dL 8.3-10.5 N BUN/Creatinine Ratio (test code = BCRATIO) 9.3 Anion Gap (test code = AGAP) 10 mmol/L 7-16 N Estimated GFR (test code = GFR) 55 mL/min/1.73m2 eGFR (estimated Glomerular Filtration Rate) is an estimated value,calculated from the patient's serum creatinine using the MDRD equation.It is NOT the patient's actual GFR. The eGFR provides a more clinicallyuseful measure of kidney disease than serum creatinine alone.This calculation takes sex and race into account, if the informationis provided. If the race is not provided, and the patient isAfrican-Swedish, multiply by 1.212. If sex is not provided, and thepatient is female, multiply by 0.742. Results for patients <18 years ofage have not been validated by the MDRD study and should be interpretedwith caution.eGFR Result Interpretation:eGFR > or = 60 is in the Normal RangeeGFR < 60 may mean kidney diseaseeGFR < 15 may mean kidney failureRanges recommended by the National Kidney Found ation,http://nkdep.nih.gov CBC with [id number] 06:37:00* Test Item Value Reference Range Interpretation Comments WBC (test code = WBC) 10.7 K/cumm 4.4-10.5 H RBC (test code = RBC) 4.24 M/cumm 4.10-5.70 N Hemoglobin (test code = HGB) 11.7 gm/dL 13.4-17.4 L Hematocrit (test code = HCT) 36.8 % 38.7-52.0 L MCV (test code = MCV) 86.8 fL 80-100 N MCH (test code = MCH) 27.5 pg 27.0-32.5 N MCHC (test code = MCHC) 31.6 g/dL 32.0-37.5 L RDW (test code = RDW) 13.8 % 11.5-14.5 N Platelet Count (test code = PLTCT) 398 K/cumm 140-440 N MPV (test code = MPV) 8.5 fL Diff Method (test code = DIFFM) Auto Neutrophil (test code = NEUT) 75.4 % 36-70 H Lymphocyte (test code = LYMPH) 16.6 % 12-44 N Monocyte (test code = MONO) 5.3 % 0-11 N Eosinophil (test code = EOS) 2.5 % 0-7 N Basophil (test code = BASO) 0.2 % 0-2 N Neutro Abs (test code = ANEUT) 8.1 K/cumm 1.6-7.4 H Lymph Abs (test code = ALYMPH) 1.8 K/cumm 0.5-4.6 N Weld Abs (test code = AMONO) 0.6 K/cumm 0.0-1.2 N Eos Abs (test code = AEOS) 0.26 K/cumm 0.00-0.74 N Baso Abs (test code = ABASO) 0.0 K/cumm 0.00-0.21 N POC Glucose, [id number] 05:29:00* Test Item Value Reference Range Interpretation Comments POC Glucose (test code = POCGLUC) 216 mg/dL 70-115 H If you consider your patient critically ill, the Abhishek Accu-Chek InformII metershould not be used for Glucose determinations.Draw a venous Glucose and send to the Main Lab for Analysis. POC Glucose, [id number] 00:50:00* Test Item Value Reference Range Interpretation Comments POC Glucose (test code = POCGLUC) 159 mg/dL 70-115 H If you consider your patient critically ill, the Abhishek Accu-Chek InformII metershould not be used for Glucose determinations.Draw a venous Glucose and send to the Main Lab for Analysis. POC Glucose, [id number] 19:18:00* Test Item Value Reference Range Interpretation Comments POC Glucose (test code = POCGLUC) 321 mg/dL 70-115 H If you consider your patient critically ill, the Abhishek Accu-Chek InformII metershould not be used for Glucose determinations.Draw a venous Glucose and send to the Main Lab for Analysis. POC Glucose, [id number] 16:42:00* Test Item Value Reference Range Interpretation Comments POC Glucose (test code = POCGLUC) 189 mg/dL 70-115 H If you consider your patient critically ill, the Abhishek Accu-Chek InformII metershould not be used for Glucose determinations.Draw a venous Glucose and send to the Main Lab for Analysis. Vancomycin, [id number] 14:09:00* Test Item Value Reference Range Interpretation Comments Ralph Irwin (test code = VANTR) 23.1 ug/mL 10.0-20.0 HH VERIFIED BY REPEAT TESTING READ BACK LAB VALUESmdianne at 1409 on 05.29.2017. pva POC Glucose, [id number] 11:54:00* Test Item Value Reference Range Interpretation Comments POC Glucose (test code = POCGLUC) 241 mg/dL 70-115 H If you consider your patient critically ill, the Abhishek Accu-Chek InformII metershould not be used for Glucose determinations.Draw a venous Glucose and send to the Main Lab for Analysis. Glycosylated [id number] 09:53:00* Test Item Value Reference Range Interpretation Comments HBA1c (test code = HBA1C) 10.7 % 4.8-5.9 H POC Glucose, [id number] 07:44:00* Test Item Value Reference Range Interpretation Comments POC Glucose (test code = POCGLUC) 148 mg/dL 70-115 H If you consider your patient critically ill, the Abhishek Accu-Chek InformII metershould not be used for Glucose determinations.Draw a venous Glucose and send to the Main Lab for Analysis. CBC with [id number] 07:13:00* Test Item Value Reference Range Interpretation Comments WBC (test code = WBC) 12.1 K/cumm 4.4-10.5 H RBC (test code = RBC) 4.29 M/cumm 4.10-5.70 N Hemoglobin (test code = HGB) 12.4 gm/dL 13.4-17.4 L Hematocrit (test code = HCT) 36.3 % 38.7-52.0 L MCV (test code = MCV) 84.7 fL 80-100 N MCH (test code = MCH) 29.0 pg 27.0-32.5 N MCHC (test code = MCHC) 34.2 g/dL 32.0-37.5 N RDW (test code = RDW) 12.4 % 11.5-14.5 N Platelet Count (test code = PLTCT) 361 K/cumm 140-440 N MPV (test code = MPV) 7.9 fL Diff Method (test code = DIFFM) Auto Neutrophil (test code = NEUT) 75.6 % 36-70 H Lymphocyte (test code = LYMPH) 15.6 % 12-44 N Monocyte (test code = MONO) 6.0 % 0-11 N Eosinophil (test code = EOS) 2.4 % 0-7 N Basophil (test code = BASO) 0.4 % 0-2 N Neutro Abs (test code = ANEUT) 9.1 K/cumm 1.6-7.4 H Lymph Abs (test code = ALYMPH) 1.9 K/cumm 0.5-4.6 N Weld Abs (test code = AMONO) 0.7 K/cumm 0.0-1.2 N Eos Abs (test code = AEOS) 0.29 K/cumm 0.00-0.74 N Baso Abs (test code = ABASO) 0.1 K/cumm 0.00-0.21 N Basic Metabolic [id number] 06:04:00* Test Item Value Reference Range Interpretation Comments Sodium (test code = NA) 136 mmol/L 135-145 N Potassium (test code = K) 4.0 mmol/L 3.5-5.1 N Chloride (test code = CL) 99 mmol/L 98-105 N Carbon Dioxide (test code = CO2) 25 mmol/L 22-29 N Glucose (test code = GLU) 190 mg/dL 70-115 H Blood Urea Nitrogen (test code = BUN) 13 mg/dL 6-20 N Creatinine (test code = CREAT) 1.5 mg/dL 0.7-1.2 H Calcium (test code = CA) 8.4 mg/dL 8.3-10.5 N BUN/Creatinine Ratio (test code = BCRATIO) 8.7 Anion Gap (test code = AGAP) 12 mmol/L 7-16 N Estimated GFR (test code = GFR) 55 mL/min/1.73m2 eGFR (estimated Glomerular Filtration Rate) is an estimated value,calculated from the patient's serum creatinine using the MDRD equation.It is NOT the patient's actual GFR. The eGFR provides a more clinicallyuseful measure of kidney disease than serum creatinine alone.This calculation takes sex and race into account, if the informationis provided. If the race is not provided, and the patient isAfrican-Swedish, multiply by 1.212. If sex is not provided, and thepatient is female, multiply by 0.742. Results for patients <18 years ofage have not been validated by the MDRD study and should be interpretedwith caution.eGFR Result Interpretation:eGFR > or = 60 is in the Normal RangeeGFR < 60 may mean kidney diseaseeGFR < 15 may mean kidney failureRanges recommended by the National Kidney Found ation,http://nkdep.nih.gov Lipid [id number] 06:04:00* Test Item Value Reference Range Interpretation Comments Cholesterol (test code = CHOL) 167 mg/dL 0-200 N Triglycerides (test code = TRIG) 199 mg/dL 9-200 N HDL (test code = HDL) 20 mg/dL 40-60 L Chol/HDL (test code = CHOLPHDL) 8.4 Ratio 0.0-5.0 H LDL, Calculated (test code = LDLC) 107 mg/dL 0-130 N (NOTE)RISK OF HEART DISEASEPublished by Swedish Heart AssociationAnalyte Optimal Boderline Increased RiskCHOL <200 200-239 >240TRIG <150 150-199 >200HDL Male: >60 <40HDL Female: >60 <50LDL <100 130-159 >160LDL NEAR OPTIMAL IS 100-129 VLDL (test code = VLDL) 40 mg/dL 5-40 N LDL/HDL (test code = LDLPHDL) 5 POC Glucose, [id number] 04:03:00* Test Item Value Reference Range Interpretation Comments POC Glucose (test code = POCGLUC) 175 mg/dL 70-115 H If you consider your patient critically ill, the Abhishek Accu-Chek InformII metershould not be used for Glucose determinations.Draw a venous Glucose and send to the Main Lab for Analysis. POC Glucose, [id number] 00:08:00* Test Item Value Reference Range Interpretation Comments POC Glucose (test code = POCGLUC) 148 mg/dL 70-115 H If you consider your patient critically ill, the Abhishek Accu-Chek InformII metershould not be used for Glucose determinations.Draw a venous Glucose and send to the Main Lab for Analysis. POC Glucose, [id number] 20:28:00* Test Item Value Reference Range Interpretation Comments POC Glucose (test code = POCGLUC) 257 mg/dL 70-115 H If you consider your patient critically ill, the Abhishek Accu-Chek InformII metershould not be used for Glucose determinations.Draw a venous Glucose and send to the Main Lab for Analysis. POC Glucose, [id number] 16:38:00* Test Item Value Reference Range Interpretation Comments POC Glucose (test code = POCGLUC) 210 mg/dL 70-115 H If you consider your patient critically ill, the Abhishek Accu-Chek InformII metershould not be used for Glucose determinations.Draw a venous Glucose and send to the Main Lab for Analysis. HIV [id number] 13:49:00* Test Item Value Reference Range Interpretation Comments HIV 1/2 Antibody (test code = HIV1/2AB) Non-Reactive Non-Reactive N HIV1/2 Antibody screen result indicates the absence of HIV1 and NYJ4pklfvnfch.However, A Non-Reactive screen result does not rule out exposure orinfection. If an acute infection is suspected, HIV RNA Quantitative is recommended. P24 Antigen (test code = P24) Non-Reactive Non-Reactive N P24 Ag screen result indicates the absence of P24 antigen, which is anindicator of HIV-1 acute infection.However, A Non-Reactive screen does not rule out exposure or infection.If acute HIV-1 is suspected, HIV RNA Quantitative is recommended. POC Glucose, [id number] 11:32:00* Test Item Value Reference Range Interpretation Comments POC Glucose (test code = POCGLUC) 299 mg/dL 70-115 H If you consider your patient critically ill, the Abhishek Accu-Chek InformII metershould not be used for Glucose determinations.Draw a venous Glucose and send to the Main Lab for Analysis. POC Glucose, [id number] 07:57:00* Test Item Value Reference Range Interpretation Comments POC Glucose (test code = POCGLUC) 206 mg/dL 70-115 H If you consider your patient critically ill, the Abhishek Accu-Chek InformII metershould not be used for Glucose determinations.Draw a venous Glucose and send to the Main Lab for Analysis. Culture, Wound [id number] 07:44:00Specimen/Source: Wound/LT.FACEABSCESSCollected: 05/22/2017 16:24 Status: Final Last Updated: 05/28/2017 07:44 Gram Stain (Final) (Final) 05/23/17 Few WBC'S , No Organisms Seen Culture Result (Final) (Final) 05/23/17 Few Alpha hemolytic Streptococcus (not Group D orEnterococcus) 05/28/17 Few Peptostreptococcus Culture, Blood [id number] 23:01:00Specimen: BloodCollected: 05/22/2017 14:49 Status: Final Last Updated: 05/27/2017 23:01 (1) ER Bed 4 left forearm Culture Result (Final) (Final) No Growth After 5 Days Culture, Blood [id number] 23:01:00Specimen: BloodCollected: 05/22/2017 14:47 Status: Final Last Updated: 05/27/2017 23:01 (1) ER Bed 4 left ac Culture Result (Final) (Final) No Growth After 5 Days POC Glucose, [id number] 21:17:00* Test Item Value Reference Range Interpretation Comments POC Glucose (test code = POCGLUC) 198 mg/dL 70-115 H If you consider your patient critically ill, the Abhishek Accu-Chek InformII metershould not be used for Glucose determinations.Draw a venous Glucose and send to the Main Lab for Analysis. POC Glucose, [id number] 16:23:00* Test Item Value Reference Range Interpretation Comments POC Glucose (test code = POCGLUC) 254 mg/dL 70-115 H If you consider your patient critically ill, the Abhishek Accu-Chek InformII metershould not be used for Glucose determinations.Draw a venous Glucose and send to the Main Lab for Analysis. POC Glucose, [id number] 12:30:00* Test Item Value Reference Range Interpretation Comments POC Glucose (test code = POCGLUC) 154 mg/dL 70-115 H If you consider your patient critically ill, the Abhishek Accu-Chek InformII metershould not be used for Glucose determinations.Draw a venous Glucose and send to the Main Lab for Analysis. POC Glucose, [id number] 08:15:00* Test Item Value Reference Range Interpretation Comments POC Glucose (test code = POCGLUC) 164 mg/dL 70-115 H If you consider your patient critically ill, the Abhishek Accu-Chek InformII metershould not be used for Glucose determinations.Draw a venous Glucose and send to the Main Lab for Analysis. POC Glucose, [id number] 04:28:00* Test Item Value Reference Range Interpretation Comments POC Glucose (test code = POCGLUC) 157 mg/dL 70-115 H If you consider your patient critically ill, the Abhishek Accu-Chek InformII metershould not be used for Glucose determinations.Draw a venous Glucose and send to the Main Lab for Analysis. Antibody Screen - [id number] 04:23:00* Test Item Value Reference Range Interpretation Comments Antibody Screen (test code = ABSCR) Negative Magnesium, [id number] 03:45:00* Test Item Value Reference Range Interpretation Comments Magnesium (test code = MG) 1.9 mg/dL 1.7-2.5 N Basic Metabolic [id number] 03:45:00* Test Item Value Reference Range Interpretation Comments Sodium (test code = NA) 137 mmol/L 135-145 N Potassium (test code = K) 3.4 mmol/L 3.5-5.1 L Chloride (test code = CL) 99 mmol/L 98-105 N Carbon Dioxide (test code = CO2) 25 mmol/L 22-29 N Glucose (test code = GLU) 133 mg/dL 70-115 H Blood Urea Nitrogen (test code = BUN) 8 mg/dL 6-20 N Creatinine (test code = CREAT) 0.7 mg/dL 0.7-1.2 N Calcium (test code = CA) 8.5 mg/dL 8.3-10.5 N BUN/Creatinine Ratio (test code = BCRATIO) 11.4 Anion Gap (test code = AGAP) 13 mmol/L 7-16 N Estimated GFR (test code = GFR) >60 mL/min/1.73m2 eGFR (estimated Glomerular Filtration Rate) is an estimated value,calculated from the patient's serum creatinine using the MDRD equation.It is NOT the patient's actual GFR. The eGFR provides a more clinicallyuseful measure of kidney disease than serum creatinine alone.This calculation takes sex and race into account, if the informationis provided. If the race is not provided, and the patient isAfrican-Swedish, multiply by 1.212. If sex is not provided, and thepatient is female, multiply by 0.742. Results for patients <18 years ofage have not been validated by the MDRD study and should be interpretedwith caution.eGFR Result Interpretation:eGFR > or = 60 is in the Normal RangeeGFR < 60 may mean kidney diseaseeGFR < 15 may mean kidney failureRanges recommended by the National Kidney Found ation,http://nkdep.nih.gov [id number] 03:45:00* Test Item Value Reference Range Interpretation Comments Phosphorus (test code = PO4) 4.0 mg/dL 2.70-4.50 N Blood Type and [id number] 03:41:00* Test Item Value Reference Range Interpretation Comments ABO type (test code = ABO) O Rh Type (test code = RH) Positive CBC with [id number] 03:15:00* Test Item Value Reference Range Interpretation Comments WBC (test code = WBC) 11.7 K/cumm 4.4-10.5 H RBC (test code = RBC) 4.67 M/cumm 4.10-5.70 N Hemoglobin (test code = HGB) 13.1 gm/dL 13.4-17.4 L Hematocrit (test code = HCT) 40.2 % 38.7-52.0 N MCV (test code = MCV) 86.2 fL 80-100 N MCH (test code = MCH) 28.0 pg 27.0-32.5 N MCHC (test code = MCHC) 32.5 g/dL 32.0-37.5 N RDW (test code = RDW) 14.2 % 11.5-14.5 N Platelet Count (test code = PLTCT) 377 K/cumm 140-440 N MPV (test code = MPV) 8.4 fL Diff Method (test code = DIFFM) Auto Neutrophil (test code = NEUT) 64.0 % 36-70 N Lymphocyte (test code = LYMPH) 27.7 % 12-44 N Monocyte (test code = MONO) 6.6 % 0-11 N Eosinophil (test code = EOS) 1.4 % 0-7 N Basophil (test code = BASO) 0.4 % 0-2 N Neutro Abs (test code = ANEUT) 7.5 K/cumm 1.6-7.4 H Lymph Abs (test code = ALYMPH) 3.2 K/cumm 0.5-4.6 N Weld Abs (test code = AMONO) 0.8 K/cumm 0.0-1.2 N Eos Abs (test code = AEOS) 0.16 K/cumm 0.00-0.74 N Baso Abs (test code = ABASO) 0.1 K/cumm 0.00-0.21 N Vancomycin, [id number] 02:48:00* Test Item Value Reference Range Interpretation Comments Vanco, Trou (test code = VANTR) 18.0 ug/mL 10.0-20.0 N POC Glucose, [id number] 01:06:00* Test Item Value Reference Range Interpretation Comments POC Glucose (test code = POCGLUC) 97 mg/dL 70-115 N If you consider your patient critically ill, the Abhishek Accu-Chek InformII metershould not be used for Glucose determinations.Draw a venous Glucose and send to the Main Lab for Analysis. CT MAXILLOFACIAL WO [id number] 22:59:38EXAM: CT FACE WITHOUT CONTRASTINDICATION: Left face swellingCOMPARISON: Radiographs dated May 22, 2017TECHNIQUE: Axial CT images of the face were obtained without administration ofintravenous contrast. Reformatted images in the sagittal and coronalplane were included.IV contrast: NoneDLP: 902.73 mGy-cmFINDINGS:There is fat stranding involving the subcutaneous soft tissues of theleft face. There are pockets of subcutaneous emphysema within thesuperficial and deep soft tissues including the left massetermusculature and parapharyngeal soft tissues. There is intramuscularedema involving the left masseter muscles and thickening of the leftplatysma muscle. Soft tissue stranding surrounding the leftsubmandibular gla nd. No definite fluid collection to suggest drainableabscess is identified.There is a periapical lucency surrounding the second left mandibularmolar consistent with abscess with cortical disruption of the medialaspect of the mandible. There is a dental caries of the left secondmandibular molar.There are enlarged lymph nodes within the left neck with the largestmeasuring approximately 1.7 x 1.2 cm likely representing reactiveadenopathy.The nasopharynx and oropharynx are normal . The larynx and hypopharynxare normal.The thyroid gland is normal in appearance . The salivary glands includingthe parotid and submandibular glands are normal.I alexis portions of the paranasal sinuses and mastoid air cells areclear. Imaged p ortions of the brain and orbits are unremarkable.The lung apices are clear.IMPRE SSION: 1. Dental caries and periapical abscess of the left second mandibularmol ar with cortical disruption along the medial aspect of the mandible.2. Soft tis janine cellulitis and myositis of the left face. Extensivesubcutaneous emphysema. N o drainable abscess is identified.3. Reactive adenopathy in the left neck.LOCAT ION: R16POC Glucose, [id number] 20:26:00* Test Item Value Reference Range Interpretation Comments POC Glucose (test code = POCGLUC) 258 mg/dL 70-115 H If you consider your patient critically ill, the Abhishek Accu-Chek InformII metershould not be used for Glucose determinations.Draw a venous Glucose and send to the Main Lab for Analysis. POC Glucose, [id number] 18:14:00* Test Item Value Reference Range Interpretation Comments POC Glucose (test code = POCGLUC) 215 mg/dL 70-115 H If you consider your patient critically ill, the Abhishek Accu-Chek InformII metershould not be used for Glucose determinations.Draw a venous Glucose and send to the Main Lab for Analysis. POC Glucose, [id number] 13:42:00* Test Item Value Reference Range Interpretation Comments POC Glucose (test code = POCGLUC) 297 mg/dL 70-115 H If you consider your patient critically ill, the Abhishek Accu-Chek InformII metershould not be used for Glucose determinations.Draw a venous Glucose and send to the Main Lab for Analysis. POC Glucose, [id number] 09:48:00* Test Item Value Reference Range Interpretation Comments POC Glucose (test code = POCGLUC) 188 mg/dL 70-115 H If you consider your patient critically ill, the Abhishek Accu-Chek InformII metershould not be used for Glucose determinations.Draw a venous Glucose and send to the Main Lab for Analysis. CBC with [id number] 04:38:00* Test Item Value Reference Range Interpretation Comments WBC (test code = WBC) 9.8 K/cumm 4.4-10.5 N RBC (test code = RBC) 3.98 M/cumm 4.10-5.70 L Hemoglobin (test code = HGB) 11.3 gm/dL 13.4-17.4 L Hematocrit (test code = HCT) 34.1 % 38.7-52.0 L MCV (test code = MCV) 85.7 fL 80-100 N MCH (test code = MCH) 28.4 pg 27.0-32.5 N MCHC (test code = MCHC) 33.1 g/dL 32.0-37.5 N RDW (test code = RDW) 12.1 % 11.5-14.5 N Platelet Count (test code = PLTCT) 328 K/cumm 140-440 N MPV (test code = MPV) 8.3 fL Diff Method (test code = DIFFM) Auto Neutrophil (test code = NEUT) 69.7 % 36-70 N Lymphocyte (test code = LYMPH) 22.2 % 12-44 N Monocyte (test code = MONO) 7.4 % 0-11 N Eosinophil (test code = EOS) 0.3 % 0-7 N Basophil (test code = BASO) 0.3 % 0-2 N Neutro Abs (test code = ANEUT) 6.8 K/cumm 1.6-7.4 N Lymph Abs (test code = ALYMPH) 2.2 K/cumm 0.5-4.6 N Weld Abs (test code = AMONO) 0.7 K/cumm 0.0-1.2 N Eos Abs (test code = AEOS) 0.03 K/cumm 0.00-0.74 N Baso Abs (test code = ABASO) 0.0 K/cumm 0.00-0.21 N POC Glucose, [id number] 04:22:00* Test Item Value Reference Range Interpretation Comments POC Glucose (test code = POCGLUC) 265 mg/dL 70-115 H If you consider your patient critically ill, the Abhishek Accu-Chek InformII metershould not be used for Glucose determinations.Draw a venous Glucose and send to the Main Lab for Analysis. Basic Metabolic [id number] 04:15:00* Test Item Value Reference Range Interpretation Comments Sodium (test code = NA) 131 mmol/L 135-145 L Potassium (test code = K) 3.6 mmol/L 3.5-5.1 N Chloride (test code = CL) 99 mmol/L 98-105 N Carbon Dioxide (test code = CO2) 22 mmol/L 22-29 N Glucose (test code = GLU) 303 mg/dL 70-115 H Blood Urea Nitrogen (test code = BUN) 13 mg/dL 6-20 N Creatinine (test code = CREAT) 0.7 mg/dL 0.7-1.2 N Calcium (test code = CA) 8.2 mg/dL 8.3-10.5 L BUN/Creatinine Ratio (test code = BCRATIO) 18.6 Anion Gap (test code = AGAP) 10 mmol/L 7-16 N Estimated GFR (test code = GFR) >60 mL/min/1.73m2 eGFR (estimated Glomerular Filtration Rate) is an estimated value,calculated from the patient's serum creatinine using the MDRD equation.It is NOT the patient's actual GFR. The eGFR provides a more clinicallyuseful measure of kidney disease than serum creatinine alone.This calculation takes sex and race into account, if the informationis provided. If the race is not provided, and the patient isAfrican-Swedish, multiply by 1.212. If sex is not provided, and thepatient is female, multiply by 0.742. Results for patients <18 years ofage have not been validated by the MDRD study and should be interpretedwith caution.eGFR Result Interpretation:eGFR > or = 60 is in the Normal RangeeGFR < 60 may mean kidney diseaseeGFR < 15 may mean kidney failureRanges recommended by the National Kidney Found ation,http://nkdep.nih.gov POC Glucose, [id number] 01:06:00* Test Item Value Reference Range Interpretation Comments POC Glucose (test code = POCGLUC) 263 mg/dL 70-115 H If you consider your patient critically ill, the Abhishek Accu-Chek InformII metershould not be used for Glucose determinations.Draw a venous Glucose and send to the Main Lab for Analysis. POC Glucose, [id number] 20:07:00* Test Item Value Reference Range Interpretation Comments POC Glucose (test code = POCGLUC) 297 mg/dL 70-115 H If you consider your patient critically ill, the Abhishek Accu-Chek InformII metershould not be used for Glucose determinations.Draw a venous Glucose and send to the Main Lab for Analysis. Vancomycin, [id number] 19:11:00* Test Item Value Reference Range Interpretation Comments Ralph Irwin (test code = VANTR) 11.0 ug/mL 10.0-20.0 N POC Glucose, [id number] 17:07:00* Test Item Value Reference Range Interpretation Comments POC Glucose (test code = POCGLUC) 257 mg/dL 70-115 H If you consider your patient critically ill, the Abhishek Accu-Chek InformII metershould not be used for Glucose determinations.Draw a venous Glucose and send to the Main Lab for Analysis. POC Glucose, [id number] 12:45:00* Test Item Value Reference Range Interpretation Comments POC Glucose (test code = POCGLUC) 315 mg/dL 70-115 H If you consider your patient critically ill, the Abhishek Accu-Chek InformII metershould not be used for Glucose determinations.Draw a venous Glucose and send to the Main Lab for Analysis. POC Glucose, [id number] 09:41:00* Test Item Value Reference Range Interpretation Comments POC Glucose (test code = POCGLUC) 248 mg/dL 70-115 H If you consider your patient critically ill, the Abhishek Accu-Chek InformII metershould not be used for Glucose determinations.Draw a venous Glucose and send to the Main Lab for Analysis. POC Glucose, [id number] 03:59:00* Test Item Value Reference Range Interpretation Comments POC Glucose (test code = POCGLUC) 207 mg/dL 70-115 H If you consider your patient critically ill, the Abhishek Accu-Chek InformII metershould not be used for Glucose determinations.Draw a venous Glucose and send to the Main Lab for Analysis. POC Glucose, [id number] 00:46:00* Test Item Value Reference Range Interpretation Comments POC Glucose (test code = POCGLUC) 174 mg/dL 70-115 H If you consider your patient critically ill, the Abhishek Accu-Chek InformII metershould not be used for Glucose determinations.Draw a venous Glucose and send to the Main Lab for Analysis. POC Glucose, [id number] 20:42:00* Test Item Value Reference Range Interpretation Comments POC Glucose (test code = POCGLUC) 241 mg/dL 70-115 H If you consider your patient critically ill, the Abhishek Accu-Chek InformII metershould not be used for Glucose determinations.Draw a venous Glucose and send to the Main Lab for Analysis. POC Glucose, [id number] 17:36:00* Test Item Value Reference Range Interpretation Comments POC Glucose (test code = POCGLUC) 212 mg/dL 70-115 H If you consider your patient critically ill, the Abhishek Accu-Chek InformII metershould not be used for Glucose determinations.Draw a venous Glucose and send to the Main Lab for Analysis. Vancomycin, [id number] 10:49:00* Test Item Value Reference Range Interpretation Comments Ralph Irwin (test code = VANTR) 8.9 ug/mL 10.0-20.0 L POC Glucose, [id number] 09:24:00* Test Item Value Reference Range Interpretation Comments POC Glucose (test code = POCGLUC) 141 mg/dL 70-115 H If you consider your patient critically ill, the Abhishek Accu-Chek InformII metershould not be used for Glucose determinations.Draw a venous Glucose and send to the Main Lab for Analysis. XR CHEST 1 [id number] 08:57:46Exam: Chest portable erectLocation: D 4History: IntubatedComparison: 05/23/2017.Findings:No change has occurred in the aeration of the lungs or the left basilarinfiltrate. The pulmonary vasculature is normal. The heart size isunchanged. The mediastinal silhouette is unremarkable. The endotrachealtube remains in place.Impression:Stable chest. Blood Gas+Lytes+Glu+Ca+Hgb+Hct+[id number] 04:48:00* Test Item Value Reference Range Interpretation Comments pH, Blood Gas (test code = BGPH) 7.397 pH Units 7.35-7.45 N pH, Temp Corrected (test code = BGPHC) 7.414 pH Units 7.35-7.45 N pCO2 (test code = PCO2) 41.5 mm Hg 35-45 N pCO2, Temp Corrected (test code = PCO2C) 39.5 mm Hg 35-45 N pO2 (test code = PO2) 106.0 mm Hg 80-100 HH pO2, Temp Corrected (test code = PO2C) 100.0 mm Hg 80-100 N Bicarbonate (test code = HCO3) 25.5 mmol/L 22.0-26.0 N Base Excess (test code = BE) 0.6 mmol/L O2 Saturation (test code = O2SAT) 97.2 % 80.0-100.0 N Sodium, Blood Gas (test code = BGNA) 140 mmol/L 135-145 N Potassium, Blood Gas (test code = BGK) 3.6 mmol/L 3.5-4.5 N Chloride, Blood Gas (test code = BGCL) 109 mmol/L 98-105 H Calcium, Ionized, Blood Gas (test code = BGCAI) 1.21 mmol/L 1.00-1 .50 N Glucose, Blood Gas (test code = BGGLU) 229 mg/dL 75-115 H tHB (test code = RTHB) 10.5 gm/dL 12.2-17.4 L Hematocrit, Blood Gas (test code = BGHCT) 32.1 % 34.0-52.0 L O2Hb (test code = RO2HB) 96 80-100 N Carboxyhemoglobin (test code = CARHGB) 0.1 % 0.0-20.0 N Methemoglobin (test code = METHGB) 1.3 % 0.0-20.0 N FIO2 % (test code = FIO2) 50 % Patient Temperature (test code = PTTEMP) 35.8 Degrees Celcius Comment (test code = COMMENT) [id number].[id number]/5.jz Puncture Site (test code = PUNSITE) Brachial. R Drawing Tech ID (test code = DRAWTECH) [id number] iPAP (test code = IPAP) 0 cmH2O Peep (test code = RPEEP) 5 Respiratory Rate (test code = RESP RATE) 14 Tidal Volume (test code = TIDALVOL) 0.500 Liters Lactic Acid, Blood Gas (test code = BGLA) 1.0 mmol/L POC Glucose, [id number] 03:59:00* Test Item Value Reference Range Interpretation Comments POC Glucose (test code = POCGLUC) 223 mg/dL 70-115 H If you consider your patient critically ill, the Abhishek Accu-Chek InformII metershould not be used for Glucose determinations.Draw a venous Glucose and send to the Main Lab for Analysis. POC Glucose, [id number] 00:41:00* Test Item Value Reference Range Interpretation Comments POC Glucose (test code = POCGLUC) 269 mg/dL 70-115 H If you consider your patient critically ill, the Abhishek Accu-Chek InformII metershould not be used for Glucose determinations.Draw a venous Glucose and send to the Main Lab for Analysis. POC Glucose, [id number] 22:22:00* Test Item Value Reference Range Interpretation Comments POC Glucose (test code = POCGLUC) 193 mg/dL 70-115 H If you consider your patient critically ill, the Abhishek Accu-Chek InformII metershould not be used for Glucose determinations.Draw a venous Glucose and send to the Main Lab for Analysis. POC Glucose, [id number] 17:17:00* Test Item Value Reference Range Interpretation Comments POC Glucose (test code = POCGLUC) 183 mg/dL 70-115 H If you consider your patient critically ill, the Abhishek Accu-Chek InformII metershould not be used for Glucose determinations.Draw a venous Glucose and send to the Main Lab for Analysis. POC Glucose, [id number] 13:00:00* Test Item Value Reference Range Interpretation Comments POC Glucose (test code = POCGLUC) 151 mg/dL 70-115 H If you consider your patient critically ill, the Abhishek Accu-Chek InformII metershould not be used for Glucose determinations.Draw a venous Glucose and send to the Main Lab for Analysis. POC Glucose, [id number] 09:04:00* Test Item Value Reference Range Interpretation Comments POC Glucose (test code = POCGLUC) 214 mg/dL 70-115 H If you consider your patient critically ill, the Abhishek Accu-Chek InformII metershould not be used for Glucose determinations.Draw a venous Glucose and send to the Main Lab for Analysis. HIV [id number] 07:18:00* Test Item Value Reference Range Interpretation Comments HIV 1/2 Antibody (test code = HIV1/2AB) Non-Reactive Non-Reactive N HIV1/2 Antibody screen result indicates the absence of HIV1 and VHC0azvcjszzq.However, A Non-Reactive screen result does not rule out exposure orinfection. If an acute infection is suspected, HIV RNA Quantitative is recommended. P24 Antigen (test code = P24) Non-Reactive Non-Reactive N P24 Ag screen result indicates the absence of P24 antigen, which is anindicator of HIV-1 acute infection.However, A Non-Reactive screen does not rule out exposure or infection.If acute HIV-1 is suspected, HIV RNA Quantitative is recommended. Glycosylated [id number] 05:39:00* Test Item Value Reference Range Interpretation Comments HBA1c (test code = HBA1C) 10.8 % 4.8-5.9 H Basic Metabolic [id number] 05:23:00* Test Item Value Reference Range Interpretation Comments Sodium (test code = NA) 135 mmol/L 135-145 N Potassium (test code = K) 4.4 mmol/L 3.5-5.1 N Chloride (test code = CL) 97 mmol/L 98-105 L Carbon Dioxide (test code = CO2) 20 mmol/L 22-29 L Glucose (test code = GLU) 290 mg/dL 70-115 H Blood Urea Nitrogen (test code = BUN) 24 mg/dL 6-20 H Creatinine (test code = CREAT) 0.8 mg/dL 0.7-1.2 N Calcium (test code = CA) 8.6 mg/dL 8.3-10.5 N BUN/Creatinine Ratio (test code = BCRATIO) 30.0 Anion Gap (test code = AGAP) 18 mmol/L 7-16 H Estimated GFR (test code = GFR) >60 mL/min/1.73m2 eGFR (estimated Glomerular Filtration Rate) is an estimated value,calculated from the patient's serum creatinine using the MDRD equation.It is NOT the patient's actual GFR. The eGFR provides a more clinicallyuseful measure of kidney disease than serum creatinine alone.This calculation takes sex and race into account, if the informationis provided. If the race is not provided, and the patient isAfrican-Swedish, multiply by 1.212. If sex is not provided, and thepatient is female, multiply by 0.742. Results for patients <18 years ofage have not been validated by the MDRD study and should be interpretedwith caution.eGFR Result Interpretation:eGFR > or = 60 is in the Normal RangeeGFR < 60 may mean kidney diseaseeGFR < 15 may mean kidney failureRanges recommended by the National Kidney Found ation,http://nkdep.nih.gov Magnesium, [id number] 05:10:00* Test Item Value Reference Range Interpretation Comments Magnesium (test code = MG) 2.5 mg/dL 1.7-2.5 N [id number] 05:07:00* Test Item Value Reference Range Interpretation Comments Phosphorus (test code = PO4) 5.1 mg/dL 2.70-4.50 H Blood Gas+Lytes+Glu+Ca+Hgb+Hct+[id number] 05:04:00* Test Item Value Reference Range Interpretation Comments pH, Blood Gas (test code = BGPH) 7.325 pH Units 7.35-7.45 L pCO2 (test code = PCO2) 42.5 mm Hg 35-45 N pO2 (test code = PO2) 112.0 mm Hg 80-100 HH Bicarbonate (test code = HCO3) 22.1 mmol/L 22.0-26.0 N Base Excess (test code = BE) -3.8 mmol/L O2 Saturation (test code = O2SAT) 98.3 % 80.0-100.0 N Sodium, Blood Gas (test code = BGNA) 135 mmol/L 135-145 N Potassium, Blood Gas (test code = BGK) 3.8 mmol/L 3.5-4.5 N Chloride, Blood Gas (test code = BGCL) 103 mmol/L 98-105 N Calcium, Ionized, Blood Gas (test code = BGCAI) 1.18 mmol/L 1.00-1 .50 N Glucose, Blood Gas (test code = BGGLU) 270 mg/dL 75-115 H tHB (test code = RTHB) 12.6 gm/dL 12.2-17.4 N Hematocrit, Blood Gas (test code = BGHCT) 38.7 % 34.0-52.0 N O2Hb (test code = RO2HB) 96 80-100 N Carboxyhemoglobin (test code = CARHGB) 0.7 % 0.0-20.0 N Methemoglobin (test code = METHGB) 1.4 % 0.0-20.0 N FIO2 % (test code = FIO2) 50 % Patient Temperature (test code = PTTEMP) 37.0 Degrees Celcius Comment (test code = COMMENT) crit- po2/ rblv- rn L Israel @ 0530 e brown Puncture Site (test code = PUNSITE) Brachial. R Drawing Tech ID (test code = DRAWTECH) [id number] iPAP (test code = IPAP) 0 cmH2O Peep (test code = RPEEP) 5 Respiratory Rate (test code = RESP RATE) 14 Tidal Volume (test code = TIDALVOL) 0.500 Liters Lactic Acid, Blood Gas (test code = BGLA) 1.1 mmol/L CBC with [id number] 05:01:00* Test Item Value Reference Range Interpretation Comments WBC (test code = WBC) 19.7 K/cumm 4.4-10.5 H RBC (test code = RBC) 4.26 M/cumm 4.10-5.70 N Hemoglobin (test code = HGB) 12.3 gm/dL 13.4-17.4 L Hematocrit (test code = HCT) 37.8 % 38.7-52.0 L MCV (test code = MCV) 88.7 fL 80-100 N MCH (test code = MCH) 28.9 pg 27.0-32.5 N MCHC (test code = MCHC) 32.6 g/dL 32.0-37.5 N RDW (test code = RDW) 12.0 % 11.5-14.5 N Platelet Count (test code = PLTCT) 316 K/cumm 140-440 N MPV (test code = MPV) 8.0 fL Diff Method (test code = DIFFM) Auto Neutrophil (test code = NEUT) 85.3 % 36-70 H Lymphocyte (test code = LYMPH) 7.6 % 12-44 L Monocyte (test code = MONO) 6.8 % 0-11 N Eosinophil (test code = EOS) 0.1 % 0-7 N Basophil (test code = BASO) 0.2 % 0-2 N Neutro Abs (test code = ANEUT) 16.8 K/cumm 1.6-7.4 H Lymph Abs (test code = ALYMPH) 1.5 K/cumm 0.5-4.6 N Weld Abs (test code = AMONO) 1.4 K/cumm 0.0-1.2 H Eos Abs (test code = AEOS) 0.02 K/cumm 0.00-0.74 N Baso Abs (test code = ABASO) 0.0 K/cumm 0.00-0.21 N POC Glucose, [id number] 00:45:00* Test Item Value Reference Range Interpretation Comments POC Glucose (test code = POCGLUC) 366 mg/dL 70-115 H If you consider your patient critically ill, the Abhishek Accu-Chek InformII metershould not be used for Glucose determinations.Draw a venous Glucose and send to the Main Lab for Analysis. POC Glucose, [id number] 17:05:00* Test Item Value Reference Range Interpretation Comments POC Glucose (test code = POCGLUC) 298 mg/dL 70-115 H If you consider your patient critically ill, the Abhishek Accu-Chek InformII metershould not be used for Glucose determinations.Draw a venous Glucose and send to the Main Lab for Analysis. Antibody Screen - [id number] 16:58:00* Test Item Value Reference Range Interpretation Comments Antibody Screen (test code = ABSCR) Negative Urinalysis [id number] 16:45:00* Test Item Value Reference Range Interpretation Comments Color (test code = COLOR) Yellow Yellow,Straw,Pl yellow N Clarity (test code = CLAR) Clear Clear N Specific [place] (test code = SPGR) 1.033 1.001-1.035 N pH (test code = PH) 6.5 5.0-9.0 N Ketone (test code = KET) 150 mg/dL Negative A Glucose (test code = GLUCUR) 1000 mg/dL Negative A Protein (test code = PROT) 75 mg/dL Negative A Bilirubin (test code = BILI) Negative mg/dL Negative N Occult Blood (test code = UDOB) Negative Negative N Urobilinogen (test code = UROB) 4.0 mg/dL 0.2-1.0 H Nitrite (test code = NIT) Negative Negative N Leuk Esterase (test code = LEUK) Negative Negative N Micros Exam (test code = MEXAM) Indicated Epithelial Cells (test code = EPI) 20-29 /LPF 0-30 A WBC, Urine (test code = UWBC) 0-5 /HPF 0-5 N RBC, Urine (test code = URBC) 0-3 /HPF 0-5 A Bacteria (test code = BACT) None /HPF Casts (test code = CASTS) 0-1 Hyaline 0-1 Fine Granular /HPF Blood Type and [id number] 16:43:00* Test Item Value Reference Range Interpretation Comments ABO type (test code = ABO) O Rh Type (test code = RH) Positive Comprehensive Metabolic [id number] 15:48:00* Test Item Value Reference Range Interpretation Comments Sodium (test code = NA) 129 mmol/L 135-145 L Potassium (test code = K) 4.3 mmol/L 3.5-5.1 N Chloride (test code = CL) 88 mmol/L 98-105 L Carbon Dioxide (test code = CO2) 21 mmol/L 22-29 L Glucose (test code = GLU) 220 mg/dL 70-115 H Blood Urea Nitrogen (test code = BUN) 14 mg/dL 6-20 N Creatinine (test code = CREAT) 0.6 mg/dL 0.7-1.2 L Calcium (test code = CA) 9.3 mg/dL 8.3-10.5 N Prot Total (test code = TP) 7.9 g/dL 6.4-8.3 N Albumin (test code = ALB) 3.9 g/dL 3.5-5.2 N A/G Ratio (test code = AGRATIO) 1.0 Ratio Globulin (test code = GLOB) 4.0 2.9-3.1 H Bili Total (test code = TBIL) 0.4 mg/dL 0.1-0.9 N Alk Phos (test code = APHOS) 191 U/L 40-129 H AST (test code = AST) 13 U/L 1-40 N ALT (test code = ALT) 17 U/L 1-41 N BUN/Creatinine Ratio (test code = BCRATIO) 23.3 Anion Gap (test code = AGAP) 20 mmol/L 7-16 H Estimated GFR (test code = GFR) >60 mL/min/1.73m2 eGFR (estimated Glomerular Filtration Rate) is an estimated value,calculated from the patient's serum creatinine using the MDRD equation.It is NOT the patient's actual GFR. The eGFR provides a more clinicallyuseful measure of kidney disease than serum creatinine alone.This calculation takes sex and race into account, if the informationis provided. If the race is not provided, and the patient isAfrican-Swedish, multiply by 1.212. If sex is not provided, and thepatient is female, multiply by 0.742. Results for patients <18 years ofage have not been validated by the MDRD study and should be interpretedwith caution.eGFR Result Interpretation:eGFR > or = 60 is in the Normal RangeeGFR < 60 may mean kidney diseaseeGFR < 15 may mean kidney failureRanges recommended by the National Kidney Found ation,http://nkdep.nih.gov Lactic Acid [id number] 15:38:00* Test Item Value Reference Range Interpretation Comments Lactic Acid, Bld (test code = LAC) 1.2 mmol/L 0.5-1.9 N CBC with [id number] 15:36:00* Test Item Value Reference Range Interpretation Comments WBC (test code = WBC) 17.5 K/cumm 4.4-10.5 H RBC (test code = RBC) 4.82 M/cumm 4.10-5.70 N Hemoglobin (test code = HGB) 13.4 gm/dL 13.4-17.4 N Hematocrit (test code = HCT) 42.4 % 38.7-52.0 N MCV (test code = MCV) 87.9 fL 80-100 N MCH (test code = MCH) 27.8 pg 27.0-32.5 N MCHC (test code = MCHC) 31.6 g/dL 32.0-37.5 L RDW (test code = RDW) 11.9 % 11.5-14.5 N Platelet Count (test code = PLTCT) 310 K/cumm 140-440 N MPV (test code = MPV) 8.1 fL Diff Method (test code = DIFFM) Auto Neutrophil (test code = NEUT) 86.7 % 36-70 H Lymphocyte (test code = LYMPH) 5.7 % 12-44 L Monocyte (test code = MONO) 7.3 % 0-11 N Eosinophil (test code = EOS) 0.0 % 0-7 N Basophil (test code = BASO) 0.3 % 0-2 N Neutro Abs (test code = ANEUT) 15.2 K/cumm 1.6-7.4 H Lymph Abs (test code = ALYMPH) 1.0 K/cumm 0.5-4.6 N Weld Abs (test code = AMONO) 1.3 K/cumm 0.0-1.2 H Eos Abs (test code = AEOS) 0.01 K/cumm 0.00-0.74 N Baso Abs (test code = ABASO) 0.1 K/cumm 0.00-0.21 N
[2020-09-11] MEDS ORDERED: SODIUM CHLORIDE 0.9% 50ML 50 ML ONE (07:35)
[2020-09-11] MEDS ORDERED: IOPAMIDOL 370 MG/ML 200 ML INFUS..BTL INJ ONE (07:35)
[2020-09-11] MEDS ORDERED: LACTATED RINGER'S 1,000 ML ONE (07:38)
--- NOTE | 2020-09-11 08:05 | Diagnostic Imaging Report ---
EXAM: CT Abdomen and Pelvis WITH contrast INDICATION: ^ABD PAIN, r/o incarceration ^[id number] ^0730 ^Y COMPARISON: None. TECHNIQUE: Abdomen and pelvis were scanned utilizing a multidetector helical scanner from the lung base to the pubic symphysis after administration of IV contrast. Coronal and sagittal reformations were obtained. Routine protocol was performed. Scan was performed when during portal venous phase. IV CONTRAST: 100 mL of Isovue 370 ORAL CONTRAST: None COMPLICATIONS: None FINDINGS: LINES and TUBES: None. LOWER THORAX: Unremarkable HEPATOBILIARY: No focal hepatic lesions. No biliary ductal dilation. GALLBLADDER: No radio-opaque stones or sludge. No wall thickening. SPLEEN: No splenomegaly. PANCREAS: No focal masses or ductal dilatation. ADRENALS: No adrenal nodules KIDNEYS/URETERS: Kidneys enhance symmetrically. No hydronephrosis. No cystic or solid mass lesions. No stones. GI TRACT: No abnormal distention, wall thickening, or evidence of bowel obstruction. Appendix is normal. Fecalization of small bowel contents distally may represent slow transit. PELVIC ORGANS/BLADDER: Unremarkable. LYMPH NODES: No lymphadenopathy. VESSELS: Unremarkable. PERITONEUM / RETROPERITONEUM: No free air or fluid. BONES: Unremarkable. SOFT TISSUES: Fat-containing umbilical hernia. Sac measures 4.1 cm in greatest diameter. Hernia neck is 1.0 cm no significant fat stranding or fluid within the sac to suggest strangulation, however the neck is very narrow. IMPRESSION: 1. Fat containing narrow neck umbilical hernia without definite CT evidence of strangulation. 2. Fecalization of small bowel contents may represent slow transit. Signed by: Narinder Matias MD on 09/11/2020 8:02 AM
[2020-09-11] MEDS: KETOROLAC TROMETHAMINE 30 MG/ML VIAL IV STA (09:46)
[2020-09-11] MEDS ORDERED: ULTRAM50 MG PO (10:36)
[2020-09-11] MEDS ORDERED: CEPHALEXIN500 MG PO (10:38)
[2020-09-11 10:52] VITALS: BP 141/66
== END 2020-09-11 10:59 | disposition home or self-care (01) ==
LOC: ER 06:20
DX: E11.65 Type 2 diabetes mellitus with hyperglycemia (principal); K42.9 Umbilical hernia without obstruction or gangrene; I10 Essential (primary) hypertension; E78.5 Hyperlipidemia, unspecified
CPT/HCPCS: 36415; 74177; 80053; 83605; 83690; 85025; 99284; J1170; J1885; J2405; J7121; Q9967